=== PATIENT | male | born 1950 | race Caucasian/White ===

== ENCOUNTER 2019-12-10 08:00 | Inpatient (IN) ==
[2019-12-10] MEDS ORDERED: GLUCAGON 1 MG VIAL IM PRN (09:30)
[2019-12-10] MEDS ORDERED: DEXTROSE 50% 25 GM/50 ML VIAL IV PRN (09:30)
[2019-12-10 10:11] LABS: Basophils % 0.8 % (0.0-0.8); Eosinophils # 0.2 10*3/uL (0.0-0.87); Eosinophils % 3.7 % (0.00-10.9); Hematocrit 49.2 VOL% (42.0-52.0); Hemoglobin 16.6 GM/DL (14.0-18.0); Immature Granulocytes % 0.2 %; Immature Granulocytes Absolute 0.01 #; Lymphocytes # 1.5 10*3/uL (1.4-4.0); Lymphocytes % 29.5 % (21.2-54.2); Mean Corpuscular HGB Conc 33.7 GM/DL (32-36); Mean Corpuscular Volume 94.1 FL (87-102); Monocytes % 9.1 % (1.7-12.7); Neutrophils % 56.7 % (38.7-73.9); Platelet Count 184 T/CUMM (130-400); Red Blood Count 5.23 MC/CUMM (3.8-5.5); Red Cell Distribution Width 12.4 % (9.3-17.3); White Blood Count 4.9 T/CUMM (4-12)
[2019-12-10 10:21] LABS: ABG Base Excess 1.2 MMOL/L (-2.5-2.5); ABG HCO3 25.4 MMOL/L (20-26); ABG Oxygen Saturation 97.5 % (95-100); ABG PCO2 39.2 MM HG (35-48); ABG PH 7.421 (7.35-7.45); ABG PO2 91.8 MM HG (80-95); ABG TCO2 21.1 MMOL/L (23-27)
[2019-12-10 10:25] LABS: Albumin 3.5 G/DL (3.4-5.0); Bilirubin,Total 0.9 MG/DL (0.2-1.0); Calcium 8.8 MG/DL (8.5-10.1); Osmolality,Calculated 286.4 MOS/KG (273-304); Total Protein 7.2 G/DL (6.4-8.3)
[2019-12-10] MEDS ORDERED: ZALEPLON 5 MG CAPSULE PO PRN (11:50)
[2019-12-10] MEDS ORDERED: CLORAZEPATE 7.5 MG TABLET PO PRN (11:50)
[2019-12-10] MEDS ORDERED: oxyCODONE/ACETAMINOPHEN 5-325 MG TABLET PO PRN (13:06)
[2019-12-10] MEDS: CHLORHEXIDINE 4% SOLN 118 ML BOTTLE TOP SCH ×2 (15:41→21:23)
[2019-12-10] MEDS: CHLORHEXIDINE 0.12% ORAL RINSE 60 ML BOTTLE SWISH/SPIT SCH (21:23)
[2019-12-11] MEDS ORDERED: PAPAVERINE 60 MG/2 ML VIAL ONE (04:21)
[2019-12-11] MEDS ORDERED: VANCOMYCIN 1,000 MG VIAL ONE (04:22)
[2019-12-11] MEDS ORDERED: VANCOMYCIN 500 MG VIAL ONE (04:22)
[2019-12-11] MEDS ORDERED: DIAZEPAM 5 MG TABLET PO ONE (05:30)
[2019-12-11] MEDS ORDERED: FAMOTIDINE 20 MG TABLET PO ONE (05:30)
[2019-12-11] MEDS ORDERED: VANCOMYCIN INJ 1,000 MG in SODIUM CHLORIDE 0.9% 250 ML IV ONE ×2 (05:30→07:00)
[2019-12-11] MEDS ORDERED: SUFentanil 250 MCG/5 ML AMP ONE (06:00)
[2019-12-11] MEDS ORDERED: MIDAZOLAM 10 MG/2 ML VIAL ONE (06:00)
[2019-12-11 08:19] LABS: ABG Base Excess 0.3 MMOL/L (-2.5-2.5); ABG HCO3 24.7 MMOL/L (20-26); ABG Oxygen Saturation 99.9 % (95-100); ABG PCO2 37.1 MM HG (35-48); ABG PH 7.424 (7.35-7.45); ABG TCO2 20.5 MMOL/L (23-27); Glucose Heart Surgery 108 MG/DL (74-106); Hematocrit Heart Surgery 46.9 PERCENT (42-52); Hemoglobin Heart Surgery 15.3 G/DL (14.0-18.0); Ionized Calcium Arterial 1.13 MMOL/L (1.21-1.46); PCO2 Patient Temp Arterial 37.1 MMHG; PH Patient Temp Arterial 7.424; Patient Temperature 37 CELCIUS; Potassium Heart/CVR 3.5 MMOL/L (3.5-5.1); Sodium Heart/CVR 137 MMOL/L (135-145)
[2019-12-11 08:43] LABS: Bilirubin,Urine Negative (Negative); Blood, Urine Negative (Negative); Glucose,Urine (UA) Negative (Negative); Ketones,Urine Negative (Negative); Mucus,Urine Few /LPF (Occasional); Nitrite,Urine Negative (Negative); Protein,Urine Negative; RBC,Urine 1 /HPF (0-4); Urine Appearance CLEAR (Clear); Urine Color Yellow (Yellow); Urine Specific Gravity 1.013 (1.001-1.035); Urine Urobilinogen < 2.0 EU/DL (0.2-1.0); WBC,Urine 2 /HPF (0-6)
[2019-12-11] MEDS: CHLORHEXIDINE 4% SOLN 118 ML BOTTLE TOP SCH (08:54)
[2019-12-11] MEDS: CHLORHEXIDINE 0.12% ORAL RINSE 60 ML BOTTLE SWISH/SPIT SCH (08:54)
[2019-12-11] MEDS: SODIUM CHLORIDE 0.9% 1,000 ML IV SCH (08:54)
[2019-12-11] MEDS ORDERED: AMINOCAPROIC ACID 5,000 MG/20 ML VIAL ONE (09:37)
[2019-12-11] MEDS ORDERED: NITROGLYCERIN DRIP 50 MG/250 ML BOTTLE IV ONE (09:37)
[2019-12-11] MEDS ORDERED: HEPARIN/NACL 0.9% 2 UNITS/ML 500 ML IV ONE (09:37)
[2019-12-11] MEDS ORDERED: PHENYLEPHRINE DRIP 20 MG/250 ML PREMIX IV ONE (09:37)
[2019-12-11 09:42] LABS: Hemoglobin Heart Surgery 11.6 G/DL (14.0-18.0); PCO2 Patient Temp Venous 35.1 MM HG; PH Patient Temp Venous 7.446; PO2 Patient Temp Venous 47.7 MM HG; Potassium Heart/CVR 4.7 MMOL/L (3.5-5.1); VBG HCO3 23.6 MEQ/L (24-28); VBG Oxygen Saturation 84.7 %; VBG PCO2 35.1 MMHG (41-51); VBG PH 7.446; VBG PO2 47.7 MMHG (17-40)
[2019-12-11 10:16] LABS: Hematocrit Heart Surgery 39.2 PERCENT (42-52); Hemoglobin Heart Surgery 12.7 G/DL (14.0-18.0); PCO2 Patient Temp Venous 34.4 MM HG; PH Patient Temp Venous 7.471; PO2 Patient Temp Venous 47.2 MM HG; Potassium Heart/CVR 4.8 MMOL/L (3.5-5.1); VBG Base Excess 1.9 MEQ/L (0-4); VBG HCO3 25.8 MEQ/L (24-28); VBG Oxygen Saturation 85.9 %; VBG PCO2 34.4 MMHG (41-51); VBG PH 7.471; VBG PO2 47.2 MMHG (17-40)
[2019-12-11 10:42] LABS: Hematocrit Heart Surgery 41.7 PERCENT (42-52); Hemoglobin Heart Surgery 13.6 G/DL (14.0-18.0); PCO2 Patient Temp Venous 34.5 MM HG; PH Patient Temp Venous 7.466; PO2 Patient Temp Venous 43.9 MM HG; VBG Base Excess 1.7 MEQ/L (0-4); VBG HCO3 25.5 MEQ/L (24-28); VBG Oxygen Saturation 82.7 %; VBG PCO2 34.5 MMHG (41-51); VBG PH 7.466; VBG PO2 43.9 MMHG (17-40)
[2019-12-11] MEDS ORDERED: MAGNESIUM SULFATE 5 GM/10 ML VIAL IV ONE (11:11)
[2019-12-11] MEDS ORDERED: DEXTROSE 5% KCL 20 MEQ 20 MEQ/1,000 ML BAG IV ONE (11:11)
[2019-12-11] MEDS ORDERED: LIDOCAINE 2% 5 ML VIAL ONE ×2 (11:11→13:00)
[2019-12-11] MEDS ORDERED: MANNITOL 100 GM/500 ML BAG IV ONE (11:11)
[2019-12-11] MEDS ORDERED: HEPARIN 10,000 UNIT/10 ML VIAL ONE (11:11)
[2019-12-11] MEDS ORDERED: ALBUMIN 25% 25 GM/100 ML VIAL IV ONE (11:11)
[2019-12-11] MEDS ORDERED: SODIUM BICARBONATE 50 MEQ/50 ML VIAL IV ONE (11:11)
[2019-12-11] MEDS ORDERED: PROTAMINE SULFATE 250 MG/25 ML VIAL IV ONE (11:11)
[2019-12-11] MEDS ORDERED: THROMBIN TOPICAL (RECOMBINANT) 5,000 UNIT VIAL TOP ONE (11:12)
[2019-12-11] MEDS ORDERED: FUROSEMIDE 20 MG/2 ML VIAL ONE (11:12)
[2019-12-11] MEDS ORDERED: PROTAMINE SULFATE 50 MG/5 ML VIAL IV ONE (11:12)
[2019-12-11] MEDS ORDERED: methylPREDNISolone SOD SUC 1,000 MG/8 ML VIAL ONE (11:12)
[2019-12-11 11:25] LABS: ABG Base Excess -0.8 MMOL/L (-2.5-2.5); ABG HCO3 23.8 MMOL/L (20-26); ABG PCO2 32.5 MM HG (35-48); ABG PH 7.447 (7.35-7.45); ABG TCO2 19.4 MMOL/L (23-27); Glucose Heart Surgery 186 MG/DL (74-106); Hematocrit Heart Surgery 41.2 PERCENT (42-52); Hemoglobin Heart Surgery 13.4 G/DL (14.0-18.0); Ionized Calcium Arterial 1.23 MMOL/L (1.21-1.46); PCO2 Patient Temp Arterial 32.5 MMHG; PH Patient Temp Arterial 7.447; Patient Temperature 37 CELCIUS; Sodium Heart/CVR 138 MMOL/L (135-145)
[2019-12-11] MEDS ORDERED: ACETAMINOPHEN 650 MG SUPP RECTAL PRN (11:39)
[2019-12-11] MEDS ORDERED: INSULIN REGULAR 100 UNIT/ML IV PRN (11:39)
[2019-12-11] MEDS ORDERED: VECURONIUM 10 MG VIAL IV PRN ×2 (11:39)
[2019-12-11] MEDS ORDERED: ONDANSETRON 4 MG/2 ML VIAL IV PRN (11:39)
[2019-12-11] MEDS ORDERED: NITROPRUSSIDE 100 MG in DEXTROSE 5% 250 ML IV PRN (11:39)
[2019-12-11] MEDS ORDERED: CALCIUM CHLORIDE 1,000 MG/10 ML SYRINGE IV PRN (11:39)
[2019-12-11] MEDS ORDERED: INSULIN REGULAR 100 UNIT/ML IV ONE (11:39)
[2019-12-11] MEDS ORDERED: MORPHINE 10 MG/1 ML VIAL IV PRN (11:39)
[2019-12-11] MEDS ORDERED: MAGNESIUM SULF RIDER 2 GM in PREMIX 1 EACH IV PRN (11:39)
[2019-12-11] MEDS ORDERED: MAGNESIUM SULF RIDER 4 GM in PREMIX 1 EACH IV PRN (11:39)
[2019-12-11] MEDS ORDERED: DEXTROSE 50% 25 GM/50 ML VIAL IV PRN ×2 (11:39)
[2019-12-11] MEDS ORDERED: POTASSIUM CHLORIDE RIDER 10 MEQ in PREMIX 1 EACH IV PRN (11:39)
[2019-12-11] MEDS ORDERED: MIDAZOLAM 10 MG/2 ML VIAL IV PRN (11:39)
[2019-12-11] MEDS ORDERED: PHENYLEPHRINE DRIP 40 MG/250 ML PREMIX IV PRN (11:39)
[2019-12-11] MEDS ORDERED: CHLORHEXIDINE 4% SOLN 118 ML BOTTLE TOP PRN (11:39)
[2019-12-11] MEDS ORDERED: MIDAZOLAM 2 MG/2 ML VIAL IV PRN (11:39)
[2019-12-11] MEDS ORDERED: SODIUM CHLORIDE 0.45% 1,000 ML IV SCH ×2 (12:00)
[2019-12-11] MEDS ORDERED: INSULIN REGULAR DRIP 100 ML IV SCH (12:00)
[2019-12-11] MEDS: LACTATED RINGERS 250 ML IV PRN ×11 (12:15→17:24)
[2019-12-11 12:37] LABS: ABG HCO3 23.6 MMOL/L (20-26); ABG Oxygen Saturation 99.3 % (95-100); ABG PCO2 36.1 MM HG (35-48); ABG PH 7.413 (7.35-7.45); ABG TCO2 19.8 MMOL/L (23-27); Glucose Heart Surgery 161 MG/DL (74-106); Potassium Heart/CVR 3.7 MMOL/L (3.5-5.1)
[2019-12-11 12:38] LABS: Basophils % 0.3 % (0.0-0.8); Eosinophils # 0.1 10*3/uL (0.0-0.87); Eosinophils % 0.4 % (0.00-10.9); Hematocrit 40.6 VOL% (42.0-52.0); Hemoglobin 13.9 GM/DL (14.0-18.0); Immature Granulocytes % 0.8 %; Immature Granulocytes Absolute 0.09 #; Lymphocytes % 8.3 % (21.2-54.2); Mean Corpuscular HGB Conc 34.2 GM/DL (32-36); Mean Platelet Volume 9.6 FL (9.6-12.0); Monocytes % 7.3 % (1.7-12.7); Neutrophils % 82.9 % (38.7-73.9); Platelet Count 157 T/CUMM (130-400); Red Blood Count 4.32 MC/CUMM (3.8-5.5); Red Cell Distribution Width 12.2 % (9.3-17.3); White Blood Count 11.4 T/CUMM (4-12)
[2019-12-11 12:48] LABS: INR 1.2; PT Patient Result 12.8 SECS (9.8-11.9); Partial Thromboplastin Time 28.9 SECS (23.9-33.8)
[2019-12-11] MEDS: POTASSIUM CHLORIDE RIDER 20 MEQ in PREMIX 1 EACH IV PRN ×3 (12:49→16:31)
[2019-12-11] MEDS ORDERED: MINERAL OIL/PETROLATUM OPH OINT 3.5 GM TUBE ONE (13:00)
[2019-12-11] MEDS ORDERED: SEVOFLURANE 1 UNIT/15 MINUTE INH ONE (13:00)
[2019-12-11] MEDS ORDERED: LACTATED RINGERS 1,000 ML IV ONE (13:01)
[2019-12-11] MEDS ORDERED: CALCIUM CHLORIDE 1,000 MG/10 ML VIAL IV ONE (13:01)
[2019-12-11] MEDS ORDERED: SODIUM CHLORIDE 0.9% 200 ML IV ONE (13:01)
[2019-12-11] MEDS ORDERED: VECURONIUM 10 MG VIAL IV ONE (13:01)
[2019-12-11] MEDS ORDERED: SODIUM CHLORIDE 0.9% 1,000 ML IV ONE (13:01)
[2019-12-11] MEDS ORDERED: PHENYLEPHRINE 1 MG/10 ML SYRINGE IV ONE (13:01)
[2019-12-11] MEDS ORDERED: ETOMIDATE 40 MG/20 ML VIAL IV ONE (13:01)
[2019-12-11] MEDS ORDERED: GLYCOPYRROLATE 0.4 MG/2 ML VIAL ONE (13:01)
[2019-12-11 13:05] LABS: Albumin 2.9 G/DL (3.4-5.0); Bilirubin,Total 1.7 MG/DL (0.2-1.0); CKMB % 3.4 %; Calcium 8.3 MG/DL (8.5-10.1); Osmolality,Calculated 294.6 MOS/KG (273-304); Total Protein 5.6 G/DL (6.4-8.3)
[2019-12-11 13:08] LABS: Troponin I 2.7 NG/ML (0.00-0.045)
[2019-12-11] MEDS: ALBUMIN 5% 12.5 GM in PREMIX 1 EACH IV PRN ×3 (13:44→16:00)
[2019-12-11] MEDS: KETOROLAC 30 MG/1 ML VIAL IV SCH ×2 (13:51→20:13)
[2019-12-11 13:58] LABS: VBG Base Excess -0.3 MEQ/L (0-4); VBG HCO3 23.5 MEQ/L (24-28); VBG Oxygen Saturation 67.1 %; VBG PCO2 49.2 MMHG (41-51); VBG PH 7.337
[2019-12-11 14:19] LABS: ABG HCO3 23.6 MMOL/L (20-26); ABG Oxygen Saturation 98.2 % (95-100); ABG PCO2 39.7 MM HG (35-48); ABG PH 7.386 (7.35-7.45); ABG TCO2 20.8 MMOL/L (23-27); Glucose Heart Surgery 161 MG/DL (74-106); Hematocrit Heart Surgery 40.8 PERCENT (42-52); Hemoglobin Heart Surgery 13.3 G/DL (14.0-18.0); Potassium Heart/CVR 4.1 MMOL/L (3.5-5.1)
[2019-12-11 15:37] LABS: ABG Base Excess -1.6 MMOL/L (-2.5-2.5); ABG HCO3 23.1 MMOL/L (20-26); ABG Oxygen Saturation 96.3 % (95-100); ABG PCO2 50.8 MM HG (35-48); ABG PH 7.309 (7.35-7.45); ABG PO2 91.3 MM HG (80-95); ABG TCO2 22.5 MMOL/L (23-27); Glucose Heart Surgery 177 MG/DL (74-106); Hematocrit Heart Surgery 40.6 PERCENT (42-52); Hemoglobin Heart Surgery 13.2 G/DL (14.0-18.0); Potassium Heart/CVR 4.5 MMOL/L (3.5-5.1)
[2019-12-11] MEDS: INSULIN REGULAR 100 UNIT/ML SUBCUT SCH ×3 (15:47→23:35)
[2019-12-11 16:17] LABS: ABG Base Excess -2.5 MMOL/L (-2.5-2.5); ABG HCO3 23.7 MMOL/L (20-26); ABG Oxygen Saturation 95.7 % (95-100); ABG PH 7.329 (7.35-7.45); ABG PO2 89.4 MM HG (80-95); ABG TCO2 25.1 MMOL/L (23-27); Glucose Heart Surgery 173 MG/DL (74-106); Hemoglobin Heart Surgery 13.3 G/DL (14.0-18.0); Potassium Heart/CVR 4.3 MMOL/L (3.5-5.1)
[2019-12-11 18:06] LABS: ABG Base Excess -2.4 MMOL/L (-2.5-2.5); ABG HCO3 22.4 MMOL/L (20-26); ABG Oxygen Saturation 99.2 % (95-100); ABG PCO2 50.1 MM HG (35-48); ABG TCO2 21.9 MMOL/L (23-27); Glucose Heart Surgery 201 MG/DL (74-106); Potassium Heart/CVR 4.6 MMOL/L (3.5-5.1)
[2019-12-11 18:18] LABS: ABG Base Excess -1.7 MMOL/L (-2.5-2.5); ABG HCO3 22.9 MMOL/L (20-26); ABG Oxygen Saturation 92.3 % (95-100); ABG PCO2 44.5 MM HG (35-48); ABG PH 7.344 (7.35-7.45); ABG PO2 66.9 MM HG (80-95); ABG TCO2 21.3 MMOL/L (23-27); Glucose Heart Surgery 205 MG/DL (74-106); Hematocrit Heart Surgery 40.2 PERCENT (42-52); Hemoglobin Heart Surgery 13.1 G/DL (14.0-18.0); Potassium Heart/CVR 4.5 MMOL/L (3.5-5.1)
[2019-12-11] MEDS: MORPHINE 4 MG/1 ML VIAL IV PRN ×3 (18:27→22:29)
[2019-12-11 19:17] LABS: ABG HCO3 22.7 MMOL/L (20-26); ABG Oxygen Saturation 96.3 % (95-100); ABG PCO2 44.5 MM HG (35-48); ABG PH 7.339 (7.35-7.45); ABG PO2 86.1 MM HG (80-95); ABG TCO2 21.2 MMOL/L (23-27); Glucose Heart Surgery 213 MG/DL (74-106); Hematocrit Heart Surgery 39.7 PERCENT (42-52); Hemoglobin Heart Surgery 12.9 G/DL (14.0-18.0); Potassium Heart/CVR 4.4 MMOL/L (3.5-5.1)
[2019-12-11 19:38] LABS: CKMB % 5.7 %
[2019-12-11 19:40] LABS: Troponin I 15.4 NG/ML (0.00-0.045)
[2019-12-11] MEDS ORDERED: CHLORHEXIDINE 0.12% ORAL RINSE 60 ML BOTTLE SWISH/SPIT SCH (21:00)
[2019-12-11 21:20] LABS: ABG Base Excess -2.7 MMOL/L (-2.5-2.5); ABG HCO3 22.2 MMOL/L (20-26); ABG Oxygen Saturation 96.7 % (95-100); ABG PCO2 51.8 MM HG (35-48); ABG PH 7.287 (7.35-7.45); Glucose Heart Surgery 228 MG/DL (74-106); Hematocrit Heart Surgery 39.8 PERCENT (42-52); Potassium Heart/CVR 4.1 MMOL/L (3.5-5.1)
[2019-12-11 22:22] LABS: ABG Base Excess -2.9 MMOL/L (-2.5-2.5); ABG Oxygen Saturation 97.5 % (95-100); ABG PCO2 49.5 MM HG (35-48); ABG PH 7.297 (7.35-7.45); ABG TCO2 21.5 MMOL/L (23-27); Glucose Heart Surgery 226 MG/DL (74-106); Hematocrit Heart Surgery 39.4 PERCENT (42-52); Hemoglobin Heart Surgery 12.8 G/DL (14.0-18.0); Potassium Heart/CVR 4.2 MMOL/L (3.5-5.1)
[2019-12-11] MEDS: DEXMEDETOMIDINE 200 MCG in SODIUM CHLORIDE 0.9% 48 ML IV PRN (23:30)
[2019-12-11] MEDS ORDERED: VANCOMYCIN INJ 1,000 MG in SODIUM CHLORIDE 0.9% 250 ML IV SCH (23:33)
[2019-12-11 23:49] LABS: ABG Base Excess -2.9 MMOL/L (-2.5-2.5); ABG Oxygen Saturation 98.2 % (95-100); ABG PCO2 41.9 MM HG (35-48); ABG PH 7.343 (7.35-7.45); ABG TCO2 20.1 MMOL/L (23-27); Glucose Heart Surgery 225 MG/DL (74-106); Hematocrit Heart Surgery 39.3 PERCENT (42-52); Hemoglobin Heart Surgery 12.8 G/DL (14.0-18.0); Potassium Heart/CVR 4.1 MMOL/L (3.5-5.1)
[2019-12-12 00:49] LABS: ABG Base Excess -2.5 MMOL/L (-2.5-2.5); ABG HCO3 22.3 MMOL/L (20-26); ABG Oxygen Saturation 95.4 % (95-100); ABG PCO2 37.6 MM HG (35-48); ABG PO2 75.8 MM HG (80-95); ABG TCO2 19.6 MMOL/L (23-27); Glucose Heart Surgery 214 MG/DL (74-106); Hematocrit Heart Surgery 38.5 PERCENT (42-52); Hemoglobin Heart Surgery 12.5 G/DL (14.0-18.0)
[2019-12-12] MEDS: MORPHINE 4 MG/1 ML VIAL IV PRN (00:59)
[2019-12-12 02:28] LABS: ABG Base Excess -1.9 MMOL/L (-2.5-2.5); ABG HCO3 22.8 MMOL/L (20-26); ABG Oxygen Saturation 98.4 % (95-100); ABG PCO2 34.9 MM HG (35-48); ABG TCO2 19.4 MMOL/L (23-27); Glucose Heart Surgery 199 MG/DL (74-106); Hematocrit Heart Surgery 38.5 PERCENT (42-52); Hemoglobin Heart Surgery 12.5 G/DL (14.0-18.0)
[2019-12-12] MEDS: KETOROLAC 30 MG/1 ML VIAL IV SCH ×4 (02:28→22:04)
[2019-12-12] MEDS ORDERED: FUROSEMIDE 40 MG/4 ML VIAL ONE (03:12)
[2019-12-12] MEDS ORDERED: FUROSEMIDE 40 MG/4 ML VIAL IV ONE (03:20)
[2019-12-12 03:46] LABS: ABG Base Excess -1.1 MMOL/L (-2.5-2.5); ABG HCO3 23.4 MMOL/L (20-26); ABG Oxygen Saturation 97.2 % (95-100); ABG PCO2 34.3 MM HG (35-48); ABG PH 7.426 (7.35-7.45); ABG PO2 85.3 MM HG (80-95); ABG TCO2 19.8 MMOL/L (23-27); Glucose Heart Surgery 191 MG/DL (74-106); Hematocrit Heart Surgery 38.6 PERCENT (42-52); Hemoglobin Heart Surgery 12.5 G/DL (14.0-18.0); Potassium Heart/CVR 3.6 MMOL/L (3.5-5.1)
[2019-12-12 03:48] LABS: Basophils % 0.1 % (0.0-0.8); Hematocrit 37.5 VOL% (42.0-52.0); Hemoglobin 12.6 GM/DL (14.0-18.0); Immature Granulocytes % 0.2 %; Immature Granulocytes Absolute 0.02 #; Lymphocytes # 0.8 10*3/uL (1.4-4.0); Lymphocytes % 7.5 % (21.2-54.2); Mean Corpuscular HGB Conc 33.6 GM/DL (32-36); Mean Corpuscular Volume 95.7 FL (87-102); Mean Platelet Volume 10.1 FL (9.6-12.0); Monocytes % 8.2 % (1.7-12.7); Platelet Count 134 T/CUMM (130-400); Red Blood Count 3.92 MC/CUMM (3.8-5.5); Red Cell Distribution Width 12.6 % (9.3-17.3); White Blood Count 10.2 T/CUMM (4-12)
[2019-12-12] MEDS: DEXMEDETOMIDINE 200 MCG in SODIUM CHLORIDE 0.9% 48 ML IV PRN (03:57)
[2019-12-12 04:11] LABS: Albumin 3.4 G/DL (3.4-5.0); Bilirubin,Direct 0.29 MG/DL (0.0-0.20); Bilirubin,Total 1.3 MG/DL (0.2-1.0); Calcium 8.7 MG/DL (8.5-10.1); Osmolality,Calculated 295.7 MOS/KG (273-304); Total Protein 6.1 G/DL (6.4-8.3)
[2019-12-12 04:19] LABS: CKMB % 6.2 %
[2019-12-12] MEDS: ALBUMIN 5% 12.5 GM in PREMIX 1 EACH IV PRN ×2 (04:30→05:17)
[2019-12-12] MEDS: INSULIN REGULAR 100 UNIT/ML SUBCUT SCH ×5 (04:37→22:03)
[2019-12-12 05:01] LABS: Troponin I 30.4 NG/ML (0.00-0.045)
[2019-12-12 05:53] LABS: ABG Base Excess -0.2 MMOL/L (-2.5-2.5); ABG HCO3 24.2 MMOL/L (20-26); ABG Oxygen Saturation 96.6 % (95-100); ABG PCO2 40.5 MM HG (35-48); ABG PH 7.392 (7.35-7.45); ABG TCO2 21.9 MMOL/L (23-27); Glucose Heart Surgery 176 MG/DL (74-106); Hematocrit Heart Surgery 36.7 PERCENT (42-52); Hemoglobin Heart Surgery 11.9 G/DL (14.0-18.0); Potassium Heart/CVR 3.6 MMOL/L (3.5-5.1)
[2019-12-12 06:37] LABS: ABG Base Excess -0.8 MMOL/L (-2.5-2.5); ABG HCO3 23.7 MMOL/L (20-26); ABG Oxygen Saturation 94.8 % (95-100); ABG PO2 77.2 MM HG (80-95); ABG TCO2 21.6 MMOL/L (23-27); Glucose Heart Surgery 171 MG/DL (74-106); Hematocrit Heart Surgery 36.1 PERCENT (42-52); Hemoglobin Heart Surgery 11.7 G/DL (14.0-18.0); Potassium Heart/CVR 3.7 MMOL/L (3.5-5.1)
[2019-12-12] MEDS ORDERED: ONDANSETRON 4 MG/2 ML VIAL IV PRN (07:17)
[2019-12-12] MEDS ORDERED: MAGNESIUM SULF RIDER 4 GM in PREMIX 1 EACH IV PRN (07:17)
[2019-12-12] MEDS ORDERED: DEXTROSE 50% 25 GM/50 ML VIAL IV PRN ×2 (07:17)
[2019-12-12] MEDS ORDERED: GLUCAGON 1 MG VIAL IM PRN ×2 (07:17)
[2019-12-12] MEDS ORDERED: ALUMINUM/MAGNES/SIMETH MAX STR 30 ML UDCUP PO PRN (07:17)
[2019-12-12] MEDS ORDERED: MAGNESIUM SULF RIDER 2 GM in PREMIX 1 EACH IV PRN (07:17)
[2019-12-12] MEDS: PANTOPRAZOLE 40 MG TABLET PO SCH (08:16)
[2019-12-12] MEDS: TAMSULOSIN 0.4 MG CAPSULE PO SCH (08:16)
[2019-12-12] MEDS: FERROUS SULFATE 325 MG TABLET PO SCH (08:17)
[2019-12-12] MEDS: ASPIRIN EC 325 MG TABLET PO SCH (08:18)
[2019-12-12] MEDS: DOCUSATE SODIUM 100 MG CAPSULE PO SCH (08:18)
[2019-12-12] MEDS: FINASTERIDE 5 MG TABLET PO SCH (08:18)
[2019-12-12] MEDS: SODIUM CHLOR 0.45% KCL 20 MEQ 20 MEQ/1,000 ML BAG IV SCH (08:25)
[2019-12-12] MEDS ORDERED: ALPRAZolam 0.5 MG TABLET PO SCH ×2 (09:00→21:00)
[2019-12-12] MEDS: CHLORHEXIDINE 0.12% ORAL RINSE 60 ML BOTTLE SWISH/SPIT SCH ×2 (10:00→22:03)
[2019-12-12] MEDS ORDERED: INFLUENZA VIRUS VACCINE 0.5 ML SYRINGE IM ONE (12:01)
[2019-12-12] MEDS: ALPRAZolam 0.5 MG TABLET PO SCH (22:03)
[2019-12-12] MEDS: ZALEPLON 5 MG CAPSULE PO SCH (22:03)
[2019-12-13] MEDS: KETOROLAC 30 MG/1 ML VIAL IV SCH ×4 (01:58→18:37)
[2019-12-13] MEDS ORDERED: FUROSEMIDE 40 MG/4 ML VIAL IV ONE (06:00)
[2019-12-13 06:46] LABS: Albumin 3.1 G/DL (3.4-5.0); Bilirubin,Direct 0.23 MG/DL (0.0-0.20); Bilirubin,Indirect 0.7 MG/DL (0.0-1.0); Bilirubin,Total 0.9 MG/DL (0.2-1.0); Calcium 8.5 MG/DL (8.5-10.1); Osmolality,Calculated 288.4 MOS/KG (273-304); Total Protein 5.9 G/DL (6.4-8.3); Troponin I 17.1 NG/ML (0.00-0.045)
[2019-12-13 06:49] LABS: Basophils % 0.1 % (0.0-0.8); Hematocrit 31.9 VOL% (42.0-52.0); Hemoglobin 10.7 GM/DL (14.0-18.0); Immature Granulocytes % 0.5 %; Immature Granulocytes Absolute 0.07 #; Lymphocytes # 1.3 10*3/uL (1.4-4.0); Lymphocytes % 8.9 % (21.2-54.2); Mean Corpuscular HGB Conc 33.5 GM/DL (32-36); Mean Corpuscular Volume 97.3 FL (87-102); Mean Platelet Volume 10.7 FL (9.6-12.0); Monocytes % 10.4 % (1.7-12.7); Neutrophils % 80.1 % (38.7-73.9); Platelet Count 122 T/CUMM (130-400); Red Blood Count 3.28 MC/CUMM (3.8-5.5); Red Cell Distribution Width 12.6 % (9.3-17.3); White Blood Count 15.1 T/CUMM (4-12)
[2019-12-13 07:22] LABS: Band Neutrophils 7 % (0-10); Hypochromasia Slight; Lymphocytes 5 % (20-55); Microcytosis 1+; Ovalocytes Slight; Segmented Neutrophils 85 % (50-85); Total Cells Counted 100
[2019-12-13 07:23] LABS: Platelet Estimate Adequate
[2019-12-13] MEDS: ASPIRIN EC 325 MG TABLET PO SCH (11:02)
[2019-12-13] MEDS: TAMSULOSIN 0.4 MG CAPSULE PO SCH (11:02)
[2019-12-13] MEDS: PANTOPRAZOLE 40 MG TABLET PO SCH (11:03)
[2019-12-13] MEDS: ALPRAZolam 0.5 MG TABLET PO SCH ×2 (11:03→21:05)
[2019-12-13] MEDS: FERROUS SULFATE 325 MG TABLET PO SCH (11:03)
[2019-12-13] MEDS: FINASTERIDE 5 MG TABLET PO SCH (11:03)
[2019-12-13] MEDS: DOCUSATE SODIUM 100 MG CAPSULE PO SCH (11:03)
[2019-12-13] MEDS: CHLORHEXIDINE 0.12% ORAL RINSE 60 ML BOTTLE SWISH/SPIT SCH ×2 (11:04→21:05)
[2019-12-13] MEDS: INSULIN REGULAR 100 UNIT/ML SUBCUT SCH ×4 (11:06→21:04)
[2019-12-13] MEDS: SODIUM CHLOR 0.45% KCL 20 MEQ 20 MEQ/1,000 ML BAG IV SCH (11:06)
[2019-12-13] MEDS: ZALEPLON 5 MG CAPSULE PO SCH (21:05)
[2019-12-14] MEDS: KETOROLAC 30 MG/1 ML VIAL IV SCH ×4 (02:16→21:23)
[2019-12-14 04:13] LABS: Basophils % 0.2 % (0.0-0.8); Eosinophils % 0.1 % (0.00-10.9); Hematocrit 31.6 VOL% (42.0-52.0); Hemoglobin 10.4 GM/DL (14.0-18.0); Immature Granulocytes % 0.5 %; Immature Granulocytes Absolute 0.05 #; Lymphocytes # 1.8 10*3/uL (1.4-4.0); Lymphocytes % 17.5 % (21.2-54.2); Mean Corpuscular HGB Conc 32.9 GM/DL (32-36); Mean Corpuscular Volume 95.2 FL (87-102); Monocytes % 11.6 % (1.7-12.7); Neutrophils % 70.1 % (38.7-73.9); Platelet Count 124 T/CUMM (130-400); Red Blood Count 3.32 MC/CUMM (3.8-5.5); Red Cell Distribution Width 12.4 % (9.3-17.3); White Blood Count 10.4 T/CUMM (4-12)
[2019-12-14 04:40] LABS: Calcium 8.3 MG/DL (8.5-10.1)
[2019-12-14 04:56] LABS: Albumin 2.9 G/DL (3.4-5.0); Bilirubin,Direct 0.24 MG/DL (0.0-0.20); Bilirubin,Total 1.2 MG/DL (0.2-1.0); Calcium 8.3 MG/DL (8.5-10.1); Osmolality,Calculated 287.4 MOS/KG (273-304); Total Protein 5.9 G/DL (6.4-8.3)
[2019-12-14 05:18] LABS: Osmolality,Calculated 281.8 MOS/KG (273-304)
[2019-12-14 05:21] LABS: Troponin I 12.9 NG/ML (0.00-0.045)
[2019-12-14] MEDS: INSULIN REGULAR 100 UNIT/ML SUBCUT SCH ×3 (09:17→16:43)
[2019-12-14] MEDS: CHLORHEXIDINE 0.12% ORAL RINSE 60 ML BOTTLE SWISH/SPIT SCH ×2 (09:37→21:21)
[2019-12-14] MEDS: ALPRAZolam 0.5 MG TABLET PO SCH ×2 (09:37→21:20)
[2019-12-14] MEDS: PANTOPRAZOLE 40 MG TABLET PO SCH (09:39)
[2019-12-14] MEDS: TAMSULOSIN 0.4 MG CAPSULE PO SCH (09:39)
[2019-12-14] MEDS: DOCUSATE SODIUM 100 MG CAPSULE PO SCH (09:39)
[2019-12-14] MEDS: ASPIRIN EC 325 MG TABLET PO SCH (09:39)
[2019-12-14] MEDS: FERROUS SULFATE 325 MG TABLET PO SCH (09:39)
[2019-12-14] MEDS: FINASTERIDE 5 MG TABLET PO SCH (09:39)
[2019-12-14] MEDS: MAGNESIUM HYDROXIDE SUSP 30 ML UDCUP PO PRN (13:52)
[2019-12-14] MEDS: ZALEPLON 5 MG CAPSULE PO SCH (21:21)
[2019-12-15] MEDS: KETOROLAC 30 MG/1 ML VIAL IV SCH (02:35)
[2019-12-15 06:25] LABS: Calcium 8.2 MG/DL (8.5-10.1); Osmolality,Calculated 279.7 MOS/KG (273-304)
[2019-12-15] MEDS ORDERED: INFLUENZA VIRUS VACCINE 0.5 ML SYRINGE IM ONE (07:00)
[2019-12-15] MEDS: ASPIRIN EC 325 MG TABLET PO SCH (09:43)
[2019-12-15] MEDS: DOCUSATE SODIUM 100 MG CAPSULE PO SCH (09:44)
[2019-12-15] MEDS: FERROUS SULFATE 325 MG TABLET PO SCH (09:44)
[2019-12-15] MEDS: POLYETHYLENE GLYCOL POWDER 17 GM PACK PO SCH (09:46)
[2019-12-15] MEDS: TAMSULOSIN 0.4 MG CAPSULE PO SCH (09:46)
[2019-12-15] MEDS: FINASTERIDE 5 MG TABLET PO SCH (09:47)
[2019-12-15] MEDS: POTASSIUM CHLORIDE 20 MEQ TABLET PO PRN ×2 (09:47→10:59)
[2019-12-15] MEDS: PANTOPRAZOLE 40 MG TABLET PO SCH (09:48)
[2019-12-15] MEDS: ALPRAZolam 0.5 MG TABLET PO SCH ×2 (09:49→22:40)
[2019-12-15] MEDS: CHLORHEXIDINE 0.12% ORAL RINSE 60 ML BOTTLE SWISH/SPIT SCH ×2 (09:53→22:41)
[2019-12-15] MEDS: ACETAMINOPHEN 325 MG TABLET PO PRN (15:54)
[2019-12-15] MEDS ORDERED: ATORVASTATIN 20 MG TABLET PO SCH (21:00)
[2019-12-15] MEDS: ZALEPLON 5 MG CAPSULE PO SCH (22:40)
[2019-12-16 05:46] LABS: Basophils % 0.2 % (0.0-0.8); Eosinophils # 0.2 10*3/uL (0.0-0.87); Eosinophils % 2.1 % (0.00-10.9); Hematocrit 30.7 VOL% (42.0-52.0); Hemoglobin 10.1 GM/DL (14.0-18.0); Immature Granulocytes % 0.4 %; Immature Granulocytes Absolute 0.04 #; Lymphocytes # 1.3 10*3/uL (1.4-4.0); Lymphocytes % 14.2 % (21.2-54.2); Mean Corpuscular HGB Conc 32.9 GM/DL (32-36); Mean Platelet Volume 11.4 FL (9.6-12.0); Monocytes % 11.7 % (1.7-12.7); Neutrophils % 71.4 % (38.7-73.9); Platelet Count 178 T/CUMM (130-400); Red Blood Count 3.23 MC/CUMM (3.8-5.5); Red Cell Distribution Width 12.1 % (9.3-17.3); White Blood Count 9.2 T/CUMM (4-12)
[2019-12-16 06:14] LABS: Alanine Aminotransferase 104 U/L (16-61); Albumin 2.6 G/DL (3.4-5.0); Alkaline Phosphatase 69 U/L (45-117); Aspartate Amino Transferase 55 U/L (0-37); Bilirubin,Indirect 1.3 MG/DL (0.0-1.0); Blood Urea Nitrogen 22 MG/DL (7-18); Calcium 8.6 MG/DL (8.5-10.1); Estimated Glom Filtration Rate 115 ML/MIN; Glucose 113 MG/DL (74-106); Osmolality,Calculated 286.1 MOS/KG (273-304); Total Protein 5.7 G/DL (6.4-8.3)
[2019-12-16] MEDS: POTASSIUM CHLORIDE 20 MEQ TABLET PO PRN (08:29)
[2019-12-16] MEDS: ALPRAZolam 0.5 MG TABLET PO SCH (08:29)
[2019-12-16] MEDS: FERROUS SULFATE 325 MG TABLET PO SCH (08:29)
[2019-12-16] MEDS: FINASTERIDE 5 MG TABLET PO SCH (08:29)
[2019-12-16] MEDS: PANTOPRAZOLE 40 MG TABLET PO SCH (08:29)
[2019-12-16] MEDS: TAMSULOSIN 0.4 MG CAPSULE PO SCH (08:30)
[2019-12-16] MEDS: CHLORHEXIDINE 0.12% ORAL RINSE 60 ML BOTTLE SWISH/SPIT SCH (08:30)
[2019-12-16] MEDS: DOCUSATE SODIUM 100 MG CAPSULE PO SCH (08:30)
[2019-12-16] MEDS: POLYETHYLENE GLYCOL POWDER 17 GM PACK PO SCH (08:30)
[2019-12-16] MEDS: MAGNESIUM HYDROXIDE SUSP 30 ML UDCUP PO PRN (08:30)
[2019-12-16] MEDS: ASPIRIN EC 325 MG TABLET PO SCH (08:30)
[2019-12-16] MEDS: ACETAMINOPHEN 325 MG TABLET PO PRN (12:57)
[2019-12-16 12:58] VITALS: BP 123/61
== END 2019-12-16 13:30 | disposition home health service (06) | DRG 236 ==
LOC: N.4E 09:18 → N.CVR 12-11 11:52 → N.TELES 12-12 11:30

== ENCOUNTER 2020-01-10 15:26 | Inpatient (IN) ==
[2020-01-10] MEDS ORDERED: DILTIAZEM 25 MG/5 ML VIAL IV ONE (15:38)
[2020-01-10] MEDS ORDERED: dilTIAZem Drip 125 MG/125 ML PREMIX IV ONE (15:38)
[2020-01-10 16:03] LABS: Basophils % 0.2 % (0.0-0.8); Eosinophils % 0.2 % (0.00-10.9); Hematocrit 37.6 VOL% (42.0-52.0); Hemoglobin 11.9 GM/DL (14.0-18.0); Immature Granulocytes % 0.6 %; Immature Granulocytes Absolute 0.11 #; Lymphocytes # 0.7 10*3/uL (1.4-4.0); Lymphocytes % 3.9 % (21.2-54.2); Mean Corpuscular HGB Conc 31.6 GM/DL (32-36); Mean Corpuscular Volume 90.6 FL (87-102); Mean Platelet Volume 9.7 FL (9.6-12.0); Neutrophils % 88.1 % (38.7-73.9); Platelet Count 332 T/CUMM (130-400); Red Blood Count 4.15 MC/CUMM (3.8-5.5); Red Cell Distribution Width 13.3 % (9.3-17.3); White Blood Count 18.1 T/CUMM (4-12)
[2020-01-10 16:19] LABS: Calcium 8.5 MG/DL (8.5-10.1); INR 1.3; Partial Thromboplastin Time 30.4 SECS (23.9-33.8); Potassium 3.7 MMOL/L (3.5-5.1)
[2020-01-10] MEDS ORDERED: METOPROLOL TARTRATE 5 MG/5 ML VIAL IV ONE (16:45)
[2020-01-10] MEDS ORDERED: METOPROLOL TARTRATE 5 MG/5 ML VIAL IV STA ×2 (17:16→17:29)
[2020-01-10] MEDS ORDERED: METOPROLOL TARTRATE 25 MG TABLET PO STA (17:16)
[2020-01-10] MEDS ORDERED: MAGNESIUM SULF RIDER 4 GM in PREMIX 1 EACH IV PRN (17:18)
[2020-01-10] MEDS ORDERED: MAGNESIUM SULF RIDER 2 GM in PREMIX 1 EACH IV PRN (17:18)
[2020-01-10] MEDS ORDERED: ENOXAPARIN 80 MG/0.8 ML SYRINGE SUBCUT STA (17:27)
[2020-01-10] MEDS ORDERED: dilTIAZem Drip 125 MG/125 ML PREMIX IV SCH (18:00)
[2020-01-10] MEDS ORDERED: ALPRAZolam 0.5 MG TABLET PO PRN (18:05)
[2020-01-10] MEDS ORDERED: FUROSEMIDE 40 MG/4 ML VIAL IV ONE (18:06)
[2020-01-10] MEDS: LEVOFLOXACIN INJ 500 MG in PREMIX 1 EACH IV SCH (18:30)
[2020-01-10] MEDS: ALBUTEROL/IPRATROPIUM 3 ML NEB RESP TX SCH (19:30)
[2020-01-10] MEDS ORDERED: ENOXAPARIN 100 MG/ML SYRINGE SUBCUT SCH (21:00)
[2020-01-10] MEDS ORDERED: METOPROLOL TARTRATE 25 MG TABLET PO SCH (21:00)
[2020-01-10] MEDS: APIXABAN 5 MG TABLET PO SCH (21:26)
[2020-01-10] MEDS: ONDANSETRON 4 MG/2 ML VIAL IV PRN (21:26)
[2020-01-11] MEDS: ALBUTEROL/IPRATROPIUM 3 ML NEB RESP TX SCH ×4 (01:22→19:02)
[2020-01-11 05:17] LABS: Hematocrit 36.7 VOL% (42.0-52.0); Hemoglobin 11.6 GM/DL (14.0-18.0); Immature Granulocytes Absolute 0.21 #; Lymphocytes % 4.9 % (21.2-54.2); Mean Corpuscular HGB Conc 31.6 GM/DL (32-36); Mean Corpuscular Volume 90.2 FL (87-102); Mean Platelet Volume 10.4 FL (9.6-12.0); Monocytes % 6.6 % (1.7-12.7); Neutrophils % 87.5 % (38.7-73.9); Platelet Count 342 T/CUMM (130-400); Red Blood Count 4.07 MC/CUMM (3.8-5.5); Red Cell Distribution Width 13.2 % (9.3-17.3); White Blood Count 20.9 T/CUMM (4-12)
[2020-01-11 06:04] LABS: Calcium 9.3 MG/DL (8.5-10.1); Osmolality,Calculated 266.7 MOS/KG (273-304); Potassium 5.1 MMOL/L (3.5-5.1); Thyroid Stimulating Hormone 0.951 uIU/ml (0.358-3.74)
[2020-01-11 06:12] LABS: Band Neutrophils 1 % (0-10); Lymphocytes 6 % (20-55); Platelet Estimate Normal; Segmented Neutrophils 89 % (50-85); Total Cells Counted 100
[2020-01-11 07:40] LABS: Albumin 2.3 G/DL (3.4-5.0); Bilirubin,Direct 0.31 MG/DL (0.0-0.20); Bilirubin,Indirect 1.4 MG/DL (0.0-1.0); Bilirubin,Total 1.7 MG/DL (0.2-1.0); Total Protein 7.5 G/DL (6.4-8.3)
[2020-01-11 08:44] LABS: Bacteria,Urine Occasional /HPF (Few); Bilirubin,Urine Negative (Negative); Blood, Urine Negative (Negative); Glucose,Urine (UA) Negative (Negative); Ketones,Urine Negative (Negative); Mucus,Urine Moderate /LPF (Occasional); Nitrite,Urine Negative (Negative); Protein,Urine Negative; RBC,Urine 1 /HPF (0-4); Squamous Epithelial Cell,Urine Occasional /HPF (0-10); Urine Appearance CLEAR (Clear); Urine Color Amber (Yellow); Urine Specific Gravity 1.024 (1.001-1.035); WBC,Urine 1 /HPF (0-6)
[2020-01-11] MEDS ORDERED: DILTIAZEM CD 120 MG CAPSULE PO SCH (09:00)
[2020-01-11] MEDS ORDERED: ASPIRIN EC 325 MG TABLET PO SCH (09:00)
[2020-01-11] MEDS ORDERED: AMIODARONE 200 MG TABLET PO SCH (09:00)
[2020-01-11] MEDS: TAMSULOSIN 0.4 MG CAPSULE PO SCH (10:41)
[2020-01-11] MEDS: FINASTERIDE 5 MG TABLET PO SCH (10:42)
[2020-01-11] MEDS: DOCUSATE SODIUM 100 MG CAPSULE PO SCH (10:42)
[2020-01-11] MEDS: APIXABAN 5 MG TABLET PO SCH (10:42)
[2020-01-11] MEDS: ONDANSETRON 4 MG/2 ML VIAL IV PRN (10:43)
[2020-01-11] MEDS: METOPROLOL TARTRATE 50 MG TABLET PO SCH ×2 (10:43→21:48)
[2020-01-11] MEDS ORDERED: PROMETHAZINE INJ 12.5 MG in SODIUM CHLORIDE 0.9% 50 ML IV ONE (11:27)
[2020-01-11] MEDS: METOCLOPRAMIDE 10 MG/2 ML VIAL IV PRN (16:04)
[2020-01-11] MEDS ORDERED: PROMETHAZINE INJ 12.5 MG in SODIUM CHLORIDE 0.9% 50 ML IV PRN (17:46)
[2020-01-11] MEDS: LEVOFLOXACIN INJ 500 MG in PREMIX 1 EACH IV SCH (18:02)
[2020-01-11] MEDS: AMIODARONE INJ 450 MG in DEXTROSE 5% 241 ML IV SCH (18:03)
[2020-01-11] MEDS: DEXTROSE 5% NACL 0.9% 1,000 ML IV SCH (19:35)
[2020-01-11] MEDS: PANTOPRAZOLE 40 MG VIAL IV SCH (21:46)
[2020-01-11 21:55] LABS: Basophils % 0.1 % (0.0-0.8); Hematocrit 36.3 VOL% (42.0-52.0); Hemoglobin 11.6 GM/DL (14.0-18.0); Immature Granulocytes Absolute 1.01 #; Lymphocytes # 0.5 10*3/uL (1.4-4.0); Lymphocytes % 1.6 % (21.2-54.2); Mean Corpuscular Volume 89.6 FL (87-102); Monocytes % 6.7 % (1.7-12.7); Neutrophils % 88.6 % (38.7-73.9); Platelet Count 304 T/CUMM (130-400); Red Blood Count 4.05 MC/CUMM (3.8-5.5); Red Cell Distribution Width 13.2 % (9.3-17.3); White Blood Count 33.4 T/CUMM (4-12)
[2020-01-11 22:17] LABS: Anisocytosis 1+; Hypochromasia 1+; Lymphocytes 4 % (20-55); Segmented Neutrophils 90 % (50-85); Total Cells Counted 100
[2020-01-11 22:18] LABS: Platelet Estimate Adequate; Polychromasia Few; Reactive Lymphocytes Few
[2020-01-12] MEDS: ALBUTEROL/IPRATROPIUM 3 ML NEB RESP TX SCH ×4 (01:21→19:20)
[2020-01-12] MEDS: AMIODARONE INJ 450 MG in DEXTROSE 5% 241 ML IV SCH (02:03)
[2020-01-12 02:09] LABS: Hematocrit 35.6 VOL% (42.0-52.0); Hemoglobin 11.3 GM/DL (14.0-18.0)
[2020-01-12] MEDS: METOPROLOL TARTRATE 100 MG TABLET PO SCH ×2 (04:49→21:33)
[2020-01-12] MEDS: DEXTROSE 5% NACL 0.9% 1,000 ML IV SCH ×2 (04:49→13:56)
[2020-01-12 05:33] LABS: Basophils % 0.1 % (0.0-0.8); Hemoglobin 10.8 GM/DL (14.0-18.0); Immature Granulocytes % 1.4 %; Immature Granulocytes Absolute 0.38 #; Lymphocytes # 0.7 10*3/uL (1.4-4.0); Lymphocytes % 2.8 % (21.2-54.2); Mean Corpuscular HGB Conc 31.8 GM/DL (32-36); Mean Corpuscular Volume 90.4 FL (87-102); Mean Platelet Volume 10.3 FL (9.6-12.0); Monocytes % 7.6 % (1.7-12.7); Neutrophils % 88.1 % (38.7-73.9); Platelet Count 319 T/CUMM (130-400); Red Blood Count 3.76 MC/CUMM (3.8-5.5); Red Cell Distribution Width 13.2 % (9.3-17.3); White Blood Count 26.3 T/CUMM (4-12)
[2020-01-12 05:50] LABS: Calcium 8.8 MG/DL (8.5-10.1); Potassium 3.9 MMOL/L (3.5-5.1)
[2020-01-12 06:09] LABS: Hypochromasia 1+; Lymphocytes 2 % (20-55); Microcytosis 1+; Ovalocytes Slight; Platelet Estimate Adequate; Segmented Neutrophils 88 % (50-85); Total Cells Counted 100
[2020-01-12 06:21] LABS: Bilirubin,Direct 0.3 MG/DL (0.0-0.20); Bilirubin,Indirect 0.6 MG/DL (0.0-1.0); Bilirubin,Total 0.9 MG/DL (0.2-1.0); Total Protein 6.3 G/DL (6.4-8.3)
[2020-01-12] MEDS: DOCUSATE SODIUM 100 MG CAPSULE PO SCH (08:51)
[2020-01-12] MEDS: FINASTERIDE 5 MG TABLET PO SCH (08:51)
[2020-01-12] MEDS: SACUBITRIL/VALSARTAN 49-51 MG TABLET PO SCH ×2 (08:51→21:33)
[2020-01-12] MEDS: TAMSULOSIN 0.4 MG CAPSULE PO SCH (08:52)
[2020-01-12] MEDS: PANTOPRAZOLE 40 MG VIAL IV SCH (08:52)
[2020-01-12] MEDS ORDERED: ASPIRIN EC 81 MG TABLET PO SCH (09:00)
[2020-01-12] MEDS: LEVOFLOXACIN INJ 500 MG in PREMIX 1 EACH IV SCH (17:33)
[2020-01-12] MEDS ORDERED: PANTOPRAZOLE 40 MG VIAL IV SCH (21:00)
[2020-01-12] MEDS: ZALEPLON 5 MG CAPSULE PO PRN (21:33)
[2020-01-13] MEDS: ALBUTEROL/IPRATROPIUM 3 ML NEB RESP TX SCH ×4 (00:02→19:22)
[2020-01-13] MEDS: METOCLOPRAMIDE 10 MG/2 ML VIAL IV PRN (01:40)
[2020-01-13 05:30] LABS: Basophils % 0.1 % (0.0-0.8); Hematocrit 36.3 VOL% (42.0-52.0); Hemoglobin 11.5 GM/DL (14.0-18.0); Immature Granulocytes % 0.7 %; Lymphocytes % 6.3 % (21.2-54.2); Mean Corpuscular HGB Conc 31.7 GM/DL (32-36); Mean Corpuscular Volume 91.4 FL (87-102); Mean Platelet Volume 10.7 FL (9.6-12.0); Neutrophils % 83.9 % (38.7-73.9); Platelet Count 293 T/CUMM (130-400); Red Blood Count 3.97 MC/CUMM (3.8-5.5); Red Cell Distribution Width 13.5 % (9.3-17.3); White Blood Count 15.4 T/CUMM (4-12)
[2020-01-13 05:57] LABS: Albumin 1.9 G/DL (3.4-5.0); Bilirubin,Total 1.6 MG/DL (0.2-1.0); Calcium 9.2 MG/DL (8.5-10.1); Potassium 3.9 MMOL/L (3.5-5.1); Total Protein 6.9 G/DL (6.4-8.3)
[2020-01-13] MEDS: SACUBITRIL/VALSARTAN 49-51 MG TABLET PO SCH ×2 (11:08→22:22)
[2020-01-13] MEDS: PANTOPRAZOLE 40 MG VIAL IV SCH (11:08)
[2020-01-13] MEDS: TAMSULOSIN 0.4 MG CAPSULE PO SCH (11:08)
[2020-01-13] MEDS: METOPROLOL TARTRATE 100 MG TABLET PO SCH ×2 (11:08→22:23)
[2020-01-13] MEDS: DOCUSATE SODIUM 100 MG CAPSULE PO SCH (11:08)
[2020-01-13] MEDS: FINASTERIDE 5 MG TABLET PO SCH (11:08)
[2020-01-13 14:43] LABS: Hepatitis B Surface Ag Result Negative (Negative); Hepatitis C Virus Ab Quant 0.03 Index; Hepatitis C Virus Ab Result Negative (Negative)
[2020-01-13] MEDS: LEVOFLOXACIN INJ 500 MG in PREMIX 1 EACH IV SCH (18:30)
[2020-01-14] MEDS: ALBUTEROL/IPRATROPIUM 3 ML NEB RESP TX SCH ×4 (00:02→18:47)
[2020-01-14 05:41] LABS: Basophils % 0.1 % (0.0-0.8); Eosinophils % 0.3 % (0.00-10.9); Hematocrit 37.8 VOL% (42.0-52.0); Immature Granulocytes % 0.5 %; Immature Granulocytes Absolute 0.07 #; Lymphocytes # 1.4 10*3/uL (1.4-4.0); Lymphocytes % 10.7 % (21.2-54.2); Mean Corpuscular HGB Conc 31.7 GM/DL (32-36); Mean Corpuscular Volume 89.6 FL (87-102); Mean Platelet Volume 11.2 FL (9.6-12.0); Monocytes % 12.7 % (1.7-12.7); Neutrophils % 75.7 % (38.7-73.9); Platelet Count 241 T/CUMM (130-400); Red Blood Count 4.22 MC/CUMM (3.8-5.5); Red Cell Distribution Width 13.7 % (9.3-17.3)
[2020-01-14 06:02] LABS: Hypochromasia 1+; Microcytosis Slight; Ovalocytes Slight; Platelet Estimate Adequate
[2020-01-14 06:06] LABS: Albumin 1.7 G/DL (3.4-5.0); Bilirubin,Total 1.5 MG/DL (0.2-1.0); Calcium 8.8 MG/DL (8.5-10.1); Osmolality,Calculated 271.2 MOS/KG (273-304); Potassium 4.5 MMOL/L (3.5-5.1); Total Protein 6.7 G/DL (6.4-8.3)
[2020-01-14] MEDS: PANTOPRAZOLE 40 MG VIAL IV SCH (09:27)
[2020-01-14] MEDS: TAMSULOSIN 0.4 MG CAPSULE PO SCH (09:28)
[2020-01-14] MEDS: METOPROLOL TARTRATE 100 MG TABLET PO SCH ×2 (09:28→20:48)
[2020-01-14] MEDS: SACUBITRIL/VALSARTAN 49-51 MG TABLET PO SCH ×2 (09:28→20:47)
[2020-01-14] MEDS: DOCUSATE SODIUM 100 MG CAPSULE PO SCH (09:28)
[2020-01-14] MEDS: FINASTERIDE 5 MG TABLET PO SCH (09:28)
[2020-01-14] MEDS ORDERED: DILTIAZEM CD 120 MG CAPSULE PO ONE (09:29)
[2020-01-14] MEDS: LEVOFLOXACIN 500 MG TABLET PO SCH (18:05)
[2020-01-15] MEDS: ALBUTEROL/IPRATROPIUM 3 ML NEB RESP TX SCH ×4 (01:55→19:03)
[2020-01-15 05:37] LABS: Basophils % 0.1 % (0.0-0.8); Eosinophils % 0.2 % (0.00-10.9); Hematocrit 33.5 VOL% (42.0-52.0); Hemoglobin 10.5 GM/DL (14.0-18.0); Immature Granulocytes % 0.5 %; Immature Granulocytes Absolute 0.07 #; Lymphocytes # 1.1 10*3/uL (1.4-4.0); Lymphocytes % 7.4 % (21.2-54.2); Mean Corpuscular HGB Conc 31.3 GM/DL (32-36); Mean Corpuscular Volume 89.6 FL (87-102); Mean Platelet Volume 10.5 FL (9.6-12.0); Neutrophils % 81.8 % (38.7-73.9); Platelet Count 324 T/CUMM (130-400); Red Blood Count 3.74 MC/CUMM (3.8-5.5); Red Cell Distribution Width 13.8 % (9.3-17.3); White Blood Count 14.5 T/CUMM (4-12)
[2020-01-15 06:06] LABS: Albumin 1.7 G/DL (3.4-5.0); Bilirubin,Total 2.3 MG/DL (0.2-1.0); Calcium 8.8 MG/DL (8.5-10.1); Osmolality,Calculated 279.7 MOS/KG (273-304); Potassium 3.5 MMOL/L (3.5-5.1); Total Protein 6.2 G/DL (6.4-8.3)
[2020-01-15] MEDS ORDERED: DILTIAZEM CD 120 MG CAPSULE PO SCH (09:00)
[2020-01-15] MEDS ORDERED: LEVOFLOXACIN 500 MG TABLET PO SCH (09:00)
[2020-01-15] MEDS: PANTOPRAZOLE 40 MG VIAL IV SCH (09:29)
[2020-01-15] MEDS: METOPROLOL TARTRATE 100 MG TABLET PO SCH ×2 (09:29→23:52)
[2020-01-15] MEDS: FINASTERIDE 5 MG TABLET PO SCH (09:29)
[2020-01-15] MEDS: SACUBITRIL/VALSARTAN 49-51 MG TABLET PO SCH ×2 (09:29→23:53)
[2020-01-15] MEDS: TAMSULOSIN 0.4 MG CAPSULE PO SCH (09:30)
[2020-01-15] MEDS: DOCUSATE SODIUM 100 MG CAPSULE PO SCH (09:30)
[2020-01-15] MEDS: SERTRALINE 25 MG TABLET PO SCH (09:39)
[2020-01-15] MEDS: POLYETHYLENE GLYCOL POWDER 17 GM PACK PO SCH (09:39)
[2020-01-15] MEDS: CLINDAMYCIN 300 MG CAPSULE PO SCH ×2 (15:17→23:53)
[2020-01-15] MEDS: LEVOFLOXACIN 500 MG TABLET PO SCH (17:11)
[2020-01-16] MEDS: ALBUTEROL/IPRATROPIUM 3 ML NEB RESP TX SCH ×4 (01:40→19:53)
[2020-01-16 05:41] LABS: Basophils % 0.1 % (0.0-0.8); Eosinophils % 0.1 % (0.00-10.9); Hematocrit 34.4 VOL% (42.0-52.0); Immature Granulocytes % 0.6 %; Immature Granulocytes Absolute 0.09 #; Lymphocytes # 0.8 10*3/uL (1.4-4.0); Lymphocytes % 5.5 % (21.2-54.2); Mean Corpuscular Volume 88.7 FL (87-102); Mean Platelet Volume 10.4 FL (9.6-12.0); Monocytes % 9.2 % (1.7-12.7); Neutrophils % 84.5 % (38.7-73.9); Platelet Count 326 T/CUMM (130-400); Red Blood Count 3.88 MC/CUMM (3.8-5.5); Red Cell Distribution Width 14.1 % (9.3-17.3); White Blood Count 14.7 T/CUMM (4-12)
[2020-01-16 06:04] LABS: Calcium 8.7 MG/DL (8.5-10.1); Osmolality,Calculated 279.8 MOS/KG (273-304); Potassium 3.5 MMOL/L (3.5-5.1)
[2020-01-16] MEDS ORDERED: SODIUM CHLORIDE 0.9% 500 ML IV ONE (06:56)
[2020-01-16] MEDS: CLINDAMYCIN 300 MG CAPSULE PO SCH ×3 (07:33→22:40)
[2020-01-16] MEDS: SODIUM CHLORIDE 0.9% 1,000 ML IV SCH ×2 (08:00→18:43)
[2020-01-16] MEDS: FINASTERIDE 5 MG TABLET PO SCH (10:12)
[2020-01-16] MEDS: TAMSULOSIN 0.4 MG CAPSULE PO SCH (10:12)
[2020-01-16] MEDS: SERTRALINE 25 MG TABLET PO SCH (10:12)
[2020-01-16] MEDS: DOCUSATE SODIUM 100 MG CAPSULE PO SCH (10:12)
[2020-01-16] MEDS: METOPROLOL TARTRATE 100 MG TABLET PO SCH ×2 (10:12→22:40)
[2020-01-16] MEDS: PANTOPRAZOLE 40 MG VIAL IV SCH (10:13)
[2020-01-16] MEDS: POLYETHYLENE GLYCOL POWDER 17 GM PACK PO SCH (10:13)
[2020-01-16] MEDS ORDERED: MIDAZOLAM 2 MG/2 ML VIAL IV ONE (11:19)
[2020-01-16] MEDS ORDERED: MIDAZOLAM 10 MG/2 ML VIAL ONE (12:01)
[2020-01-16] MEDS ORDERED: oxyCODONE/ACETAMINOPHEN 5-325 MG TABLET PO PRN (15:47)
[2020-01-16] MEDS ORDERED: HYDROmorphone 2 MG/1 ML VIAL IV PRN (15:47)
[2020-01-16] MEDS: LEVOFLOXACIN 500 MG TABLET PO SCH (17:10)
[2020-01-16] MEDS: ZALEPLON 5 MG CAPSULE PO PRN (22:42)
[2020-01-17] MEDS: ALBUTEROL/IPRATROPIUM 3 ML NEB RESP TX SCH ×4 (01:26→19:24)
[2020-01-17] MEDS: SODIUM CHLORIDE 0.9% 1,000 ML IV SCH ×2 (05:51→06:36)
[2020-01-17 06:33] LABS: Calcium 8.4 MG/DL (8.5-10.1); Osmolality,Calculated 277.7 MOS/KG (273-304); Potassium 3.4 MMOL/L (3.5-5.1)
[2020-01-17] MEDS: CLINDAMYCIN 300 MG CAPSULE PO SCH ×3 (06:33→22:58)
[2020-01-17 06:41] LABS: Basophils % 0.1 % (0.0-0.8); Eosinophils % 0.1 % (0.00-10.9); Hematocrit 33.2 VOL% (42.0-52.0); Hemoglobin 10.4 GM/DL (14.0-18.0); Immature Granulocytes % 0.7 %; Immature Granulocytes Absolute 0.08 #; Lymphocytes # 1.2 10*3/uL (1.4-4.0); Lymphocytes % 10.1 % (21.2-54.2); Mean Corpuscular HGB Conc 31.3 GM/DL (32-36); Mean Platelet Volume 10.1 FL (9.6-12.0); Monocytes % 11.8 % (1.7-12.7); Neutrophils % 77.2 % (38.7-73.9); Platelet Count 369 T/CUMM (130-400); Red Blood Count 3.69 MC/CUMM (3.8-5.5); Red Cell Distribution Width 14.4 % (9.3-17.3); White Blood Count 11.7 T/CUMM (4-12)
[2020-01-17] MEDS: SERTRALINE 25 MG TABLET PO SCH (08:32)
[2020-01-17] MEDS: DOCUSATE SODIUM 100 MG CAPSULE PO SCH (08:32)
[2020-01-17] MEDS: METOPROLOL TARTRATE 100 MG TABLET PO SCH ×2 (08:32→22:58)
[2020-01-17] MEDS: FINASTERIDE 5 MG TABLET PO SCH (08:32)
[2020-01-17] MEDS: TAMSULOSIN 0.4 MG CAPSULE PO SCH (08:32)
[2020-01-17] MEDS: POLYETHYLENE GLYCOL POWDER 17 GM PACK PO SCH (08:33)
[2020-01-17] MEDS: PANTOPRAZOLE 40 MG VIAL IV SCH (08:33)
[2020-01-17] MEDS: LEVOFLOXACIN 500 MG TABLET PO SCH (17:05)
[2020-01-18] MEDS: ALBUTEROL/IPRATROPIUM 3 ML NEB RESP TX SCH ×4 (01:52→19:28)
[2020-01-18] MEDS: CLINDAMYCIN 300 MG CAPSULE PO SCH ×3 (06:14→22:37)
[2020-01-18 07:18] LABS: Basophils % 0.1 % (0.0-0.8); Eosinophils % 0.2 % (0.00-10.9); Hematocrit 32.3 VOL% (42.0-52.0); Hemoglobin 10.1 GM/DL (14.0-18.0); Immature Granulocytes % 0.5 %; Immature Granulocytes Absolute 0.06 #; Lymphocytes # 1.2 10*3/uL (1.4-4.0); Lymphocytes % 10.9 % (21.2-54.2); Mean Corpuscular HGB Conc 31.3 GM/DL (32-36); Monocytes % 11.7 % (1.7-12.7); Neutrophils % 76.6 % (38.7-73.9); Platelet Count 331 T/CUMM (130-400); Red Blood Count 3.63 MC/CUMM (3.8-5.5); Red Cell Distribution Width 14.6 % (9.3-17.3); White Blood Count 11.3 T/CUMM (4-12)
[2020-01-18 07:34] LABS: Calcium 8.3 MG/DL (8.5-10.1); Osmolality,Calculated 280.5 MOS/KG (273-304); Potassium 3.2 MMOL/L (3.5-5.1)
[2020-01-18] MEDS ORDERED: POTASSIUM CHLORIDE 20 MEQ TABLET PO ONE (07:50)
[2020-01-18] MEDS ORDERED: POTASSIUM CHLORIDE 20 MEQ TABLET PO PRN (08:25)
[2020-01-18] MEDS: FINASTERIDE 5 MG TABLET PO SCH (09:42)
[2020-01-18] MEDS: TAMSULOSIN 0.4 MG CAPSULE PO SCH (09:42)
[2020-01-18] MEDS: SERTRALINE 25 MG TABLET PO SCH (09:42)
[2020-01-18] MEDS: DOCUSATE SODIUM 100 MG CAPSULE PO SCH (09:42)
[2020-01-18] MEDS: POLYETHYLENE GLYCOL POWDER 17 GM PACK PO SCH (09:43)
[2020-01-18] MEDS: PANTOPRAZOLE 40 MG VIAL IV SCH (10:24)
[2020-01-18] MEDS: METOPROLOL TARTRATE 100 MG TABLET PO SCH ×2 (11:38→22:37)
[2020-01-18] MEDS: LEVOFLOXACIN 500 MG TABLET PO SCH (17:05)
[2020-01-18] MEDS: ONDANSETRON 4 MG/2 ML VIAL IV PRN (18:45)
[2020-01-19] MEDS: ALBUTEROL/IPRATROPIUM 3 ML NEB RESP TX SCH ×3 (01:20→13:43)
[2020-01-19 05:56] LABS: Basophils % 0.1 % (0.0-0.8); Eosinophils # 0.1 10*3/uL (0.0-0.87); Eosinophils % 0.4 % (0.00-10.9); Hematocrit 32.6 VOL% (42.0-52.0); Hemoglobin 10.1 GM/DL (14.0-18.0); Immature Granulocytes % 0.9 %; Immature Granulocytes Absolute 0.12 #; Lymphocytes # 1.2 10*3/uL (1.4-4.0); Mean Corpuscular Volume 90.6 FL (87-102); Mean Platelet Volume 10.1 FL (9.6-12.0); Monocytes % 9.7 % (1.7-12.7); Neutrophils % 79.9 % (38.7-73.9); Platelet Count 373 T/CUMM (130-400); Red Cell Distribution Width 14.7 % (9.3-17.3); White Blood Count 13.6 T/CUMM (4-12)
[2020-01-19 06:21] LABS: Calcium 8.6 MG/DL (8.5-10.1); Osmolality,Calculated 280.5 MOS/KG (273-304); Potassium 3.6 MMOL/L (3.5-5.1)
[2020-01-19] MEDS: CLINDAMYCIN 300 MG CAPSULE PO SCH ×2 (07:01→16:07)
[2020-01-19] MEDS: FINASTERIDE 5 MG TABLET PO SCH (09:14)
[2020-01-19] MEDS: DOCUSATE SODIUM 100 MG CAPSULE PO SCH (09:14)
[2020-01-19] MEDS: METOPROLOL TARTRATE 100 MG TABLET PO SCH (09:14)
[2020-01-19] MEDS: TAMSULOSIN 0.4 MG CAPSULE PO SCH (09:14)
[2020-01-19] MEDS: SERTRALINE 25 MG TABLET PO SCH (09:14)
[2020-01-19] MEDS: PANTOPRAZOLE 40 MG VIAL IV SCH (09:14)
[2020-01-19] MEDS: POLYETHYLENE GLYCOL POWDER 17 GM PACK PO SCH (09:15)
[2020-01-19 12:08] VITALS: BP 99/66
== END 2020-01-19 15:53 | disposition home health service (06) | DRG 309 ==
LOC: EDBD → EDUNIT# → N.ED 15:26 → N.EDINP 17:18 → N.TELES 17:42
PROVIDERS: ADMIT Internal Medicine Cardiovascular Disease; ATTEND Internal Medicine Cardiovascular Disease

== ENCOUNTER 2020-02-27 08:42 | Inpatient (IN) ==
[2020-02-27] MEDS ORDERED: SODIUM CHLORIDE 0.9% 1,000 ML IV STA (09:16)
[2020-02-27 09:44] LABS: Basophils % 0.1 % (0.0-0.8); Eosinophils % 0.4 % (0.00-10.9); Hematocrit 31.2 VOL% (42.0-52.0); Hemoglobin 9.4 GM/DL (14.0-18.0); Immature Granulocytes % 0.4 %; Immature Granulocytes Absolute 0.03 #; Lymphocytes # 0.9 10*3/uL (1.4-4.0); Mean Corpuscular HGB Conc 30.1 GM/DL (32-36); Mean Corpuscular Volume 80.8 FL (87-102); Mean Platelet Volume 9.8 FL (9.6-12.0); Monocytes % 10.4 % (1.7-12.7); Neutrophils % 76.7 % (38.7-73.9); Platelet Count 268 T/CUMM (130-400); Red Blood Count 3.86 MC/CUMM (3.8-5.5); Red Cell Distribution Width 15.9 % (9.3-17.3); White Blood Count 7.7 T/CUMM (4-12)
[2020-02-27 10:00] LABS: Albumin 2.2 G/DL (3.4-5.0); Bilirubin,Total 0.7 MG/DL (0.2-1.0); Calcium 8.3 MG/DL (8.5-10.1); Osmolality,Calculated 269.2 MOS/KG (273-304); Potassium 3.4 MMOL/L (3.5-5.1); Total Protein 7.2 G/DL (6.4-8.3)
[2020-02-27 10:57] LABS: Bacteria,Urine Occasional /HPF (Few); Bilirubin,Urine Negative (Negative); Blood, Urine Negative (Negative); Glucose,Urine (UA) Negative (Negative); Ketones,Urine Negative (Negative); Mucus,Urine Many /LPF (Occasional); Nitrite,Urine Negative (Negative); Protein,Urine Negative; RBC,Urine 5 /HPF (0-4); Uric Acid Crystals,Urine Few /HPF (<1); Urine Appearance Slightly Hazy (Clear); Urine Color Amber (Yellow); Urine Specific Gravity 1.019 (1.001-1.035); WBC,Urine 11 /HPF (0-6)
[2020-02-27] MEDS ORDERED: cefTRIAXone 1,000 MG in SODIUM CHLORIDE 0.9% 100 ML IV STA (12:01)
[2020-02-27] MEDS ORDERED: guaiFENesin/DM ER 600-30 MG TABLET PO PRN (12:26)
[2020-02-27] MEDS ORDERED: GLUCAGON 1 MG VIAL IM PRN (12:26)
[2020-02-27] MEDS ORDERED: hydrALAZINE 20 MG/1 ML VIAL IV PRN (12:26)
[2020-02-27] MEDS ORDERED: DEXTROSE 50% 25 GM/50 ML VIAL IV PRN (12:26)
[2020-02-27 13:17] LABS: Allen Test Positive
[2020-02-27 13:18] LABS: ABG Base Excess 3.3 MMOL/L (-2.5-2.5); ABG HCO3 27.3 MMOL/L (20-26); ABG Oxygen Saturation 95.6 % (95-100); ABG PCO2 40.5 MM HG (35-48); ABG PH 7.442 (7.35-7.45); ABG PO2 77.4 MM HG (80-95); ABG TCO2 24.9 MMOL/L (23-27)
[2020-02-27] MEDS: ENOXAPARIN 40 MG/0.4 ML SYRINGE SUBCUT SCH (13:58)
[2020-02-27] MEDS: LEVOFLOXACIN INJ 750 MG in PREMIX 1 EACH IV SCH (13:58)
[2020-02-27] MEDS: SODIUM CHLORIDE 0.9% 1,000 ML IV SCH (13:58)
[2020-02-27 14:34] LABS: INR 1.3; PT Patient Result 13.5 SECS (9.8-11.9)
[2020-02-27] MEDS: METOPROLOL TARTRATE 100 MG TABLET PO SCH (19:59)
[2020-02-27] MEDS ORDERED: METOPROLOL TARTRATE 50 MG TABLET PO ONE (21:00)
[2020-02-28] MEDS: SODIUM CHLORIDE 0.9% 1,000 ML IV SCH ×4 (04:30→18:47)
[2020-02-28 06:51] LABS: Basophils % 0.4 % (0.0-0.8); Eosinophils # 0.1 10*3/uL (0.0-0.87); Eosinophils % 1.8 % (0.00-10.9); Hematocrit 29.4 VOL% (42.0-52.0); Hemoglobin 8.8 GM/DL (14.0-18.0); Immature Granulocytes % 0.2 %; Immature Granulocytes Absolute 0.01 #; Lymphocytes % 17.2 % (21.2-54.2); Mean Corpuscular HGB Conc 29.9 GM/DL (32-36); Mean Corpuscular Volume 82.6 FL (87-102); Monocytes % 12.5 % (1.7-12.7); Neutrophils % 67.9 % (38.7-73.9); Platelet Count 258 T/CUMM (130-400); Red Blood Count 3.56 MC/CUMM (3.8-5.5); Red Cell Distribution Width 15.5 % (9.3-17.3); White Blood Count 5.5 T/CUMM (4-12)
[2020-02-28 07:17] LABS: Albumin 1.9 G/DL (3.4-5.0); Bilirubin,Total 0.5 MG/DL (0.2-1.0); Calcium 8.4 MG/DL (8.5-10.1); Osmolality,Calculated 271.8 MOS/KG (273-304); Potassium 3.3 MMOL/L (3.5-5.1); Risk Ratio 3.5; Thyroid Stimulating Hormone 2.83 uIU/ml (0.358-3.74); VLDL CHOLESTEROL 12.2 MG/DL
[2020-02-28] MEDS ORDERED: POTASSIUM CHLORIDE 20 MEQ TABLET PO ONE (09:00)
[2020-02-28] MEDS: METOPROLOL TARTRATE 100 MG TABLET PO SCH ×2 (09:16→21:25)
[2020-02-28] MEDS: guaiFENesin/CODEINE 5 ML LIQUID PO PRN ×2 (09:16→21:25)
[2020-02-28] MEDS: PANTOPRAZOLE 40 MG TABLET PO SCH (09:16)
[2020-02-28] MEDS ORDERED: DEXAMETHASONE 4 MG/1 ML VIAL IV SCH (11:30)
[2020-02-28] MEDS: CLOPIDOGREL 75 MG TABLET PO SCH (12:00)
[2020-02-28] MEDS: ASPIRIN EC 81 MG TABLET PO SCH (12:00)
[2020-02-28] MEDS: ZINC GLUCONATE 50 MG TABLET PO SCH (12:00)
[2020-02-28] MEDS: ASCORBIC ACID 500 MG TABLET PO SCH ×2 (12:00→21:25)
[2020-02-28] MEDS: FINASTERIDE 5 MG TABLET PO SCH (12:00)
[2020-02-28] MEDS: ENOXAPARIN 40 MG/0.4 ML SYRINGE SUBCUT SCH (12:00)
[2020-02-28] MEDS: LEVOFLOXACIN INJ 750 MG in PREMIX 1 EACH IV SCH (12:00)
[2020-02-28] MEDS: FAMOTIDINE 20 MG TABLET PO SCH ×2 (12:00→21:25)
[2020-02-29] MEDS: SODIUM CHLORIDE 0.9% 1,000 ML IV SCH ×5 (02:51→21:29)
[2020-02-29 05:23] LABS: Basophils % 0.2 % (0.0-0.8); Hematocrit 29.1 VOL% (42.0-52.0); Hemoglobin 8.7 GM/DL (14.0-18.0); Immature Granulocytes % 0.5 %; Immature Granulocytes Absolute 0.03 #; Lymphocytes # 0.8 10*3/uL (1.4-4.0); Lymphocytes % 12.3 % (21.2-54.2); Mean Corpuscular HGB Conc 29.9 GM/DL (32-36); Mean Corpuscular Volume 81.1 FL (87-102); Mean Platelet Volume 9.9 FL (9.6-12.0); Monocytes % 7.1 % (1.7-12.7); Neutrophils % 79.9 % (38.7-73.9); Platelet Count 274 T/CUMM (130-400); Red Blood Count 3.59 MC/CUMM (3.8-5.5); Red Cell Distribution Width 15.3 % (9.3-17.3); White Blood Count 6.2 T/CUMM (4-12)
[2020-02-29 05:51] LABS: Troponin I < 0.015 NG/ML (0.00-0.045)
[2020-02-29 06:02] LABS: Albumin 1.9 G/DL (3.4-5.0); Bilirubin,Total 0.9 MG/DL (0.2-1.0); Calcium 8.5 MG/DL (8.5-10.1); Osmolality,Calculated 279.4 MOS/KG (273-304); Potassium 3.9 MMOL/L (3.5-5.1); Total Protein 6.9 G/DL (6.4-8.3)
[2020-02-29] MEDS ORDERED: PANTOPRAZOLE 40 MG TABLET PO SCH (09:00)
[2020-02-29] MEDS: CLOPIDOGREL 75 MG TABLET PO SCH (09:27)
[2020-02-29] MEDS: DOCUSATE SODIUM 100 MG CAPSULE PO SCH (09:27)
[2020-02-29] MEDS: DEXAMETHASONE 4 MG/1 ML VIAL IV SCH (09:27)
[2020-02-29] MEDS: FAMOTIDINE 20 MG TABLET PO SCH ×2 (09:27→21:27)
[2020-02-29] MEDS: PANTOPRAZOLE 40 MG TABLET PO SCH (09:27)
[2020-02-29] MEDS: ASPIRIN EC 81 MG TABLET PO SCH (09:27)
[2020-02-29] MEDS: ASCORBIC ACID 500 MG TABLET PO SCH ×2 (09:27→21:27)
[2020-02-29] MEDS: FINASTERIDE 5 MG TABLET PO SCH (09:27)
[2020-02-29] MEDS: ZINC GLUCONATE 50 MG TABLET PO SCH (09:27)
[2020-02-29] MEDS: TAMSULOSIN 0.4 MG CAPSULE PO SCH (09:27)
[2020-02-29] MEDS: ROSUVASTATIN 20 MG TABLET PO SCH (09:27)
[2020-02-29] MEDS: METOPROLOL TARTRATE 100 MG TABLET PO SCH ×2 (09:27→21:28)
[2020-02-29] MEDS: ENOXAPARIN 40 MG/0.4 ML SYRINGE SUBCUT SCH (14:00)
[2020-02-29] MEDS: LEVOFLOXACIN INJ 750 MG in PREMIX 1 EACH IV SCH (14:00)
[2020-02-29] MEDS: ALPRAZolam 0.5 MG TABLET PO PRN (21:26)
[2020-02-29] MEDS: ZALEPLON 5 MG CAPSULE PO PRN (21:27)
[2020-03-01] MEDS: SODIUM CHLORIDE 0.9% 1,000 ML IV SCH ×5 (02:47→23:11)
[2020-03-01 06:41] LABS: Basophils % 0.1 % (0.0-0.8); Hematocrit 28.6 VOL% (42.0-52.0); Hemoglobin 8.6 GM/DL (14.0-18.0); Immature Granulocytes % 0.4 %; Immature Granulocytes Absolute 0.03 #; Lymphocytes # 1.4 10*3/uL (1.4-4.0); Lymphocytes % 17.3 % (21.2-54.2); Mean Corpuscular HGB Conc 30.1 GM/DL (32-36); Mean Corpuscular Volume 81.7 FL (87-102); Mean Platelet Volume 9.9 FL (9.6-12.0); Monocytes % 7.8 % (1.7-12.7); Neutrophils % 74.4 % (38.7-73.9); Platelet Count 267 T/CUMM (130-400); Red Cell Distribution Width 15.5 % (9.3-17.3); White Blood Count 7.9 T/CUMM (4-12)
[2020-03-01 07:03] LABS: Albumin 1.8 G/DL (3.4-5.0); Bilirubin,Total 0.5 MG/DL (0.2-1.0); Calcium 8.4 MG/DL (8.5-10.1); Osmolality,Calculated 287.8 MOS/KG (273-304); Potassium 3.3 MMOL/L (3.5-5.1); Total Protein 6.4 G/DL (6.4-8.3)
[2020-03-01 07:09] LABS: Ferritin 822.3 ng/ml (26-388)
[2020-03-01] MEDS ORDERED: POTASSIUM CHLORIDE 20 MEQ TABLET PO ONE (08:30)
[2020-03-01] MEDS: DEXAMETHASONE 4 MG/1 ML VIAL IV SCH (09:06)
[2020-03-01] MEDS: DOCUSATE SODIUM 100 MG CAPSULE PO SCH (09:06)
[2020-03-01] MEDS: PANTOPRAZOLE 40 MG TABLET PO SCH (09:07)
[2020-03-01] MEDS: CLOPIDOGREL 75 MG TABLET PO SCH (09:07)
[2020-03-01] MEDS: TAMSULOSIN 0.4 MG CAPSULE PO SCH (09:07)
[2020-03-01] MEDS: ROSUVASTATIN 20 MG TABLET PO SCH (09:07)
[2020-03-01] MEDS: ASCORBIC ACID 500 MG TABLET PO SCH ×2 (09:07→21:05)
[2020-03-01] MEDS: FINASTERIDE 5 MG TABLET PO SCH (09:07)
[2020-03-01] MEDS: ZINC GLUCONATE 50 MG TABLET PO SCH (09:07)
[2020-03-01] MEDS: FAMOTIDINE 20 MG TABLET PO SCH ×2 (09:07→23:05)
[2020-03-01] MEDS: ASPIRIN EC 81 MG TABLET PO SCH (09:07)
[2020-03-01] MEDS: METOPROLOL TARTRATE 100 MG TABLET PO SCH ×2 (09:07→21:05)
[2020-03-01] MEDS: ENOXAPARIN 40 MG/0.4 ML SYRINGE SUBCUT SCH (11:35)
[2020-03-01] MEDS: CHOLECALCIFEROL 1,000 UNIT TABLET PO SCH (11:35)
[2020-03-01] MEDS: CETIRIZINE 10 MG TABLET PO SCH (11:35)
[2020-03-01] MEDS: LEVOFLOXACIN INJ 750 MG in PREMIX 1 EACH IV SCH (13:37)
[2020-03-01] MEDS ORDERED: BISACODYL 5 MG TABLET PO PRN (16:31)
[2020-03-01] MEDS ORDERED: LACTULOSE 20 GM/30 ML UDCUP PO PRN (16:31)
[2020-03-01] MEDS: ZALEPLON 5 MG CAPSULE PO PRN (21:05)
[2020-03-01] MEDS: ALPRAZolam 0.5 MG TABLET PO PRN (21:05)
[2020-03-01] MEDS: guaiFENesin/CODEINE 5 ML LIQUID PO PRN (21:10)
[2020-03-02] MEDS: MORPHINE 4 MG/1 ML VIAL IV PRN (04:05)
[2020-03-02] MEDS: SODIUM CHLORIDE 0.9% 1,000 ML IV SCH ×2 (06:25→15:23)
[2020-03-02 07:17] LABS: Alanine Aminotransferase 53 U/L (16-61); Albumin 2.2 G/DL (3.4-5.0); Alkaline Phosphatase 71 U/L (45-117); Aspartate Amino Transferase 37 U/L (0-37); Bilirubin,Total < 0.39 MG/DL (0.2-1.0); Blood Urea Nitrogen 13 MG/DL (7-18); Calcium 8.8 MG/DL (8.5-10.1); Carbon Dioxide 19 MMOL/L (21-32); Estimated Glom Filtration Rate 110 ML/MIN; Ferritin 821.2 ng/ml (26-388); Glucose 121 MG/DL (74-106); Osmolality,Calculated 277.5 MOS/KG (273-304); Sodium 139 MMOL/L (136-145); Total Protein 7.8 G/DL (6.4-8.3)
[2020-03-02 07:47] LABS: Basophils % 0.1 % (0.0-0.8); Eosinophils % 0.1 % (0.00-10.9); Hematocrit 35.9 VOL% (42.0-52.0); Immature Granulocytes % 0.7 %; Lymphocytes # 2.7 10*3/uL (1.4-4.0); Lymphocytes % 17.8 % (21.2-54.2); Mean Corpuscular HGB Conc 29.2 GM/DL (32-36); Mean Corpuscular Volume 83.9 FL (87-102); Mean Platelet Volume 10.8 FL (9.6-12.0); Monocytes % 9.5 % (1.7-12.7); Neutrophils % 71.8 % (38.7-73.9)
[2020-03-02 07:48] LABS: Hemoglobin 10.5 GM/DL (14.0-18.0); Platelet Count 347 T/CUMM (130-400); Red Blood Count 4.28 MC/CUMM (3.8-5.5); White Blood Count 15.3 T/CUMM (4-12)
[2020-03-02] MEDS ORDERED: POTASSIUM CHLORIDE RIDER 10 MEQ in PREMIX 1 EACH IV PRN (08:08)
[2020-03-02] MEDS ORDERED: DILTIAZEM 25 MG/5 ML VIAL IV ONE ×3 (08:22→08:30)
[2020-03-02] MEDS ORDERED: ASPIRIN CHEW 81 MG TABLET PO ONE ×2 (08:29→08:30)
[2020-03-02] MEDS ORDERED: ASPIRIN 325 MG TABLET ONE (08:30)
[2020-03-02] MEDS ORDERED: POTASSIUM CHLORIDE 20 MEQ/15 ML UDCUP PO ONE (08:30)
[2020-03-02] MEDS ORDERED: MORPHINE 4 MG/1 ML VIAL IV ONE (08:30)
[2020-03-02] MEDS ORDERED: POTASSIUM CHLORIDE 20 MEQ/15 ML UDCUP ONE (08:30)
[2020-03-02] MEDS: FINASTERIDE 5 MG TABLET PO SCH (08:50)
[2020-03-02] MEDS: CHOLECALCIFEROL 1,000 UNIT TABLET PO SCH (08:50)
[2020-03-02] MEDS: METOPROLOL TARTRATE 100 MG TABLET PO SCH ×2 (08:50→21:40)
[2020-03-02] MEDS: ROSUVASTATIN 20 MG TABLET PO SCH (08:50)
[2020-03-02] MEDS: CETIRIZINE 10 MG TABLET PO SCH (08:50)
[2020-03-02] MEDS: ASPIRIN EC 81 MG TABLET PO SCH (08:50)
[2020-03-02] MEDS: FAMOTIDINE 20 MG TABLET PO SCH ×2 (08:50→21:39)
[2020-03-02] MEDS: ASCORBIC ACID 500 MG TABLET PO SCH ×2 (08:50→21:40)
[2020-03-02] MEDS: CLOPIDOGREL 75 MG TABLET PO SCH (08:50)
[2020-03-02] MEDS: PANTOPRAZOLE 40 MG TABLET PO SCH (08:50)
[2020-03-02] MEDS: TAMSULOSIN 0.4 MG CAPSULE PO SCH (08:51)
[2020-03-02] MEDS: ZINC GLUCONATE 50 MG TABLET PO SCH (08:51)
[2020-03-02] MEDS: DOCUSATE SODIUM 100 MG CAPSULE PO SCH (08:51)
[2020-03-02] MEDS ORDERED: ASPIRIN 325 MG TABLET PO ONE (09:00)
[2020-03-02] MEDS: CLINDAMYCIN INJ 900 MG in PREMIX 1 EACH IV SCH ×2 (11:13→16:01)
[2020-03-02] MEDS: ENOXAPARIN 40 MG/0.4 ML SYRINGE SUBCUT SCH (12:01)
[2020-03-02] MEDS: LEVOFLOXACIN INJ 750 MG in PREMIX 1 EACH IV SCH (12:02)
[2020-03-02 13:51] LABS: Bacteria,Urine Occasional /HPF (Few); Bilirubin,Urine Negative (Negative); Blood, Urine Large mg/dL (Negative); Glucose,Urine (UA) Negative (Negative); Ketones,Urine Negative (Negative); Mucus,Urine Occasional /LPF (Occasional); Nitrite,Urine Negative (Negative); Protein,Urine Negative; RBC,Urine 225 /HPF (0-4); Squamous Epithelial Cell,Urine Occasional /HPF (0-10); Urine Appearance CLEAR (Clear); Urine Color Yellow (Yellow); Urine Specific Gravity 1.008 (1.001-1.035); Urine Urobilinogen < 2.0 EU/DL (0.2-1.0); WBC,Urine 6 /HPF (0-6)
[2020-03-02] MEDS: ALPRAZolam 0.5 MG TABLET PO PRN (21:40)
[2020-03-03] MEDS: CLINDAMYCIN INJ 900 MG in PREMIX 1 EACH IV SCH ×3 (02:19→17:16)
[2020-03-03 06:05] LABS: Basophils % 0.3 % (0.0-0.8); Eosinophils # 0.1 10*3/uL (0.0-0.87); Hematocrit 30.2 VOL% (42.0-52.0); Hemoglobin 9.1 GM/DL (14.0-18.0); Immature Granulocytes % 0.5 %; Immature Granulocytes Absolute 0.04 #; Lymphocytes # 2.2 10*3/uL (1.4-4.0); Lymphocytes % 28.1 % (21.2-54.2); Mean Corpuscular HGB Conc 30.1 GM/DL (32-36); Mean Corpuscular Volume 80.7 FL (87-102); Mean Platelet Volume 9.8 FL (9.6-12.0); Monocytes % 9.4 % (1.7-12.7); Neutrophils % 60.7 % (38.7-73.9); Platelet Count 291 T/CUMM (130-400); Red Blood Count 3.74 MC/CUMM (3.8-5.5); White Blood Count 7.9 T/CUMM (4-12)
[2020-03-03 06:41] LABS: Albumin 1.8 G/DL (3.4-5.0); Bilirubin,Total 0.8 MG/DL (0.2-1.0); Calcium 8.5 MG/DL (8.5-10.1); Osmolality,Calculated 278.3 MOS/KG (273-304); Total Protein 6.4 G/DL (6.4-8.3)
[2020-03-03] MEDS ORDERED: POTASSIUM CHLORIDE 20 MEQ TABLET PO ONE ×2 (07:42→13:00)
[2020-03-03] MEDS: PANTOPRAZOLE 40 MG TABLET PO SCH (09:00)
[2020-03-03] MEDS: ASCORBIC ACID 500 MG TABLET PO SCH ×2 (09:01→20:50)
[2020-03-03] MEDS: MAGNESIUM OXIDE 400 MG TABLET PO SCH ×2 (09:01→20:50)
[2020-03-03] MEDS: FAMOTIDINE 20 MG TABLET PO SCH ×2 (09:01→20:50)
[2020-03-03] MEDS: DOCUSATE SODIUM 100 MG CAPSULE PO SCH (09:01)
[2020-03-03] MEDS: ROSUVASTATIN 20 MG TABLET PO SCH (09:01)
[2020-03-03] MEDS: TAMSULOSIN 0.4 MG CAPSULE PO SCH (09:01)
[2020-03-03] MEDS: METOPROLOL TARTRATE 100 MG TABLET PO SCH ×2 (09:01→20:50)
[2020-03-03] MEDS: CETIRIZINE 10 MG TABLET PO SCH (09:01)
[2020-03-03] MEDS: FINASTERIDE 5 MG TABLET PO SCH (09:01)
[2020-03-03] MEDS: ASPIRIN EC 81 MG TABLET PO SCH (09:01)
[2020-03-03] MEDS: ZINC GLUCONATE 50 MG TABLET PO SCH (09:01)
[2020-03-03] MEDS: ENOXAPARIN 40 MG/0.4 ML SYRINGE SUBCUT SCH (09:06)
[2020-03-03] MEDS: CHOLECALCIFEROL 1,000 UNIT TABLET PO SCH (09:51)
[2020-03-03] MEDS ORDERED: DIAZEPAM 5 MG TABLET PO ONE (11:17)
[2020-03-03] MEDS: LEVOFLOXACIN INJ 750 MG in PREMIX 1 EACH IV SCH (12:20)
[2020-03-03] MEDS: MORPHINE 4 MG/1 ML VIAL IV PRN ×2 (16:22→20:50)
[2020-03-03] MEDS: ALPRAZolam 0.5 MG TABLET PO PRN (20:51)
[2020-03-04] MEDS: CLINDAMYCIN INJ 900 MG in PREMIX 1 EACH IV SCH ×3 (00:07→16:44)
[2020-03-04 04:45] LABS: Basophils % 0.2 % (0.0-0.8); Eosinophils # 0.1 10*3/uL (0.0-0.87); Eosinophils % 0.5 % (0.00-10.9); Hematocrit 31.9 VOL% (42.0-52.0); Hemoglobin 9.8 GM/DL (14.0-18.0); Immature Granulocytes % 0.4 %; Immature Granulocytes Absolute 0.04 #; Lymphocytes # 1.7 10*3/uL (1.4-4.0); Lymphocytes % 16.8 % (21.2-54.2); Mean Corpuscular HGB Conc 30.7 GM/DL (32-36); Mean Corpuscular Volume 79.4 FL (87-102); Mean Platelet Volume 9.8 FL (9.6-12.0); Monocytes % 8.6 % (1.7-12.7); Neutrophils % 73.5 % (38.7-73.9); Platelet Count 303 T/CUMM (130-400); Red Blood Count 4.02 MC/CUMM (3.8-5.5); Red Cell Distribution Width 17.2 % (9.3-17.3); White Blood Count 9.9 T/CUMM (4-12)
[2020-03-04 05:28] LABS: Calcium 8.5 MG/DL (8.5-10.1); Osmolality,Calculated 270.8 MOS/KG (273-304); Potassium 3.6 MMOL/L (3.5-5.1); Total Protein 6.7 G/DL (6.4-8.3)
[2020-03-04] MEDS: MORPHINE 4 MG/1 ML VIAL IV PRN ×2 (08:57→21:52)
[2020-03-04] MEDS: ENOXAPARIN 40 MG/0.4 ML SYRINGE SUBCUT SCH (08:58)
[2020-03-04] MEDS: ASCORBIC ACID 500 MG TABLET PO SCH ×2 (08:59→20:19)
[2020-03-04] MEDS: TAMSULOSIN 0.4 MG CAPSULE PO SCH (08:59)
[2020-03-04] MEDS: CETIRIZINE 10 MG TABLET PO SCH (08:59)
[2020-03-04] MEDS: METOPROLOL TARTRATE 100 MG TABLET PO SCH ×2 (08:59→20:19)
[2020-03-04] MEDS: PANTOPRAZOLE 40 MG TABLET PO SCH (08:59)
[2020-03-04] MEDS: ROSUVASTATIN 20 MG TABLET PO SCH (08:59)
[2020-03-04] MEDS: MAGNESIUM OXIDE 400 MG TABLET PO SCH ×2 (08:59→20:19)
[2020-03-04] MEDS: ASPIRIN EC 81 MG TABLET PO SCH (09:00)
[2020-03-04] MEDS: DOCUSATE SODIUM 100 MG CAPSULE PO SCH (09:00)
[2020-03-04] MEDS: CHOLECALCIFEROL 1,000 UNIT TABLET PO SCH (09:00)
[2020-03-04] MEDS: FINASTERIDE 5 MG TABLET PO SCH (09:00)
[2020-03-04] MEDS: FAMOTIDINE 20 MG TABLET PO SCH ×2 (09:00→20:19)
[2020-03-04] MEDS: ZINC GLUCONATE 50 MG TABLET PO SCH (09:43)
[2020-03-04] MEDS: LEVOFLOXACIN INJ 750 MG in PREMIX 1 EACH IV SCH (12:26)
[2020-03-04] MEDS: ALPRAZolam 0.5 MG TABLET PO PRN (20:21)
[2020-03-05] MEDS: CLINDAMYCIN INJ 900 MG in PREMIX 1 EACH IV SCH ×3 (00:30→16:22)
[2020-03-05] MEDS: MORPHINE 4 MG/1 ML VIAL IV PRN ×2 (04:17→10:12)
[2020-03-05 05:52] LABS: Basophils % 0.2 % (0.0-0.8); Eosinophils # 0.2 10*3/uL (0.0-0.87); Eosinophils % 1.8 % (0.00-10.9); Hematocrit 32.1 VOL% (42.0-52.0); Hemoglobin 9.9 GM/DL (14.0-18.0); Immature Granulocytes % 0.4 %; Immature Granulocytes Absolute 0.03 #; Lymphocytes # 2.1 10*3/uL (1.4-4.0); Lymphocytes % 25.3 % (21.2-54.2); Mean Corpuscular HGB Conc 30.8 GM/DL (32-36); Mean Corpuscular Volume 79.5 FL (87-102); Mean Platelet Volume 9.7 FL (9.6-12.0); Monocytes % 10.9 % (1.7-12.7); Neutrophils % 61.4 % (38.7-73.9); Platelet Count 294 T/CUMM (130-400); Red Blood Count 4.04 MC/CUMM (3.8-5.5); Red Cell Distribution Width 17.5 % (9.3-17.3); White Blood Count 8.5 T/CUMM (4-12)
[2020-03-05 06:52] LABS: Albumin 1.9 G/DL (3.4-5.0); Bilirubin,Total 1.2 MG/DL (0.2-1.0); Calcium 8.4 MG/DL (8.5-10.1); Osmolality,Calculated 272.8 MOS/KG (273-304); Potassium 3.6 MMOL/L (3.5-5.1); Total Protein 6.5 G/DL (6.4-8.3)
[2020-03-05 07:13] LABS: Calcium 8.4 MG/DL (8.5-10.1); Osmolality,Calculated 274.7 MOS/KG (273-304); Potassium 3.5 MMOL/L (3.5-5.1)
[2020-03-05] MEDS: ZINC GLUCONATE 50 MG TABLET PO SCH (09:26)
[2020-03-05] MEDS: FINASTERIDE 5 MG TABLET PO SCH (09:26)
[2020-03-05] MEDS: ASPIRIN EC 81 MG TABLET PO SCH (09:26)
[2020-03-05] MEDS: ENOXAPARIN 40 MG/0.4 ML SYRINGE SUBCUT SCH (09:26)
[2020-03-05] MEDS: ROSUVASTATIN 20 MG TABLET PO SCH (09:26)
[2020-03-05] MEDS: DOCUSATE SODIUM 100 MG CAPSULE PO SCH (09:27)
[2020-03-05] MEDS: ASCORBIC ACID 500 MG TABLET PO SCH ×2 (09:27→21:16)
[2020-03-05] MEDS: PANTOPRAZOLE 40 MG TABLET PO SCH (09:27)
[2020-03-05] MEDS: MAGNESIUM OXIDE 400 MG TABLET PO SCH ×2 (09:27→21:17)
[2020-03-05] MEDS: TAMSULOSIN 0.4 MG CAPSULE PO SCH (09:27)
[2020-03-05] MEDS: CHOLECALCIFEROL 1,000 UNIT TABLET PO SCH (09:27)
[2020-03-05] MEDS: METOPROLOL TARTRATE 100 MG TABLET PO SCH ×2 (09:27→21:17)
[2020-03-05] MEDS: CETIRIZINE 10 MG TABLET PO SCH (09:28)
[2020-03-05] MEDS: FAMOTIDINE 20 MG TABLET PO SCH ×2 (09:28→21:16)
[2020-03-05] MEDS: LEVOFLOXACIN INJ 750 MG in PREMIX 1 EACH IV SCH (13:02)
[2020-03-05] MEDS: ALPRAZolam 0.5 MG TABLET PO PRN (21:15)
[2020-03-06] MEDS: CLINDAMYCIN INJ 900 MG in PREMIX 1 EACH IV SCH ×3 (02:21→16:30)
[2020-03-06 06:13] LABS: Basophils % 0.4 % (0.0-0.8); Eosinophils # 0.3 10*3/uL (0.0-0.87); Eosinophils % 3.7 % (0.00-10.9); Hematocrit 32.1 VOL% (42.0-52.0); Hemoglobin 9.8 GM/DL (14.0-18.0); Immature Granulocytes % 0.3 %; Immature Granulocytes Absolute 0.02 #; Lymphocytes # 2.2 10*3/uL (1.4-4.0); Lymphocytes % 33.1 % (21.2-54.2); Mean Corpuscular HGB Conc 30.5 GM/DL (32-36); Mean Platelet Volume 9.6 FL (9.6-12.0); Monocytes % 14.2 % (1.7-12.7); Neutrophils % 48.3 % (38.7-73.9); Platelet Count 296 T/CUMM (130-400); Red Blood Count 4.01 MC/CUMM (3.8-5.5); Red Cell Distribution Width 17.6 % (9.3-17.3); White Blood Count 6.7 T/CUMM (4-12)
[2020-03-06 06:32] LABS: Albumin 1.8 G/DL (3.4-5.0); Bilirubin,Total 0.4 MG/DL (0.2-1.0); Calcium 8.3 MG/DL (8.5-10.1); Osmolality,Calculated 275.8 MOS/KG (273-304); Potassium 3.8 MMOL/L (3.5-5.1); Total Protein 6.5 G/DL (6.4-8.3)
[2020-03-06 07:31] LABS: Atypical Lymphocytes Few; Eosinophils 6 % (0-10); Hypochromasia 2+; Lymphocytes 24 % (20-55); Microcytosis 1+; Ovalocytes Few; Segmented Neutrophils 55 % (50-85); Total Cells Counted 100
[2020-03-06 07:32] LABS: Platelet Estimate Normal
[2020-03-06] MEDS: MAGNESIUM OXIDE 400 MG TABLET PO SCH ×2 (09:15→21:00)
[2020-03-06] MEDS: ENOXAPARIN 40 MG/0.4 ML SYRINGE SUBCUT SCH (09:15)
[2020-03-06] MEDS: TAMSULOSIN 0.4 MG CAPSULE PO SCH (09:15)
[2020-03-06] MEDS: FAMOTIDINE 20 MG TABLET PO SCH ×2 (09:15→21:00)
[2020-03-06] MEDS: ASCORBIC ACID 500 MG TABLET PO SCH ×2 (09:15→21:00)
[2020-03-06] MEDS: PANTOPRAZOLE 40 MG TABLET PO SCH (09:15)
[2020-03-06] MEDS: DOCUSATE SODIUM 100 MG CAPSULE PO SCH (09:16)
[2020-03-06] MEDS: FINASTERIDE 5 MG TABLET PO SCH (09:16)
[2020-03-06] MEDS: CHOLECALCIFEROL 1,000 UNIT TABLET PO SCH (09:16)
[2020-03-06] MEDS: METOPROLOL TARTRATE 100 MG TABLET PO SCH ×2 (09:16→21:00)
[2020-03-06] MEDS: ASPIRIN EC 81 MG TABLET PO SCH (09:16)
[2020-03-06] MEDS: ROSUVASTATIN 20 MG TABLET PO SCH (09:16)
[2020-03-06] MEDS: ZINC GLUCONATE 50 MG TABLET PO SCH (09:34)
[2020-03-06] MEDS: CETIRIZINE 10 MG TABLET PO SCH (09:34)
[2020-03-06] MEDS: ALPRAZolam 0.5 MG TABLET PO PRN (21:00)
[2020-03-07] MEDS: CLINDAMYCIN INJ 900 MG in PREMIX 1 EACH IV SCH ×3 (01:17→17:20)
[2020-03-07 06:00] LABS: Basophils % 0.4 % (0.0-0.8); Eosinophils # 0.2 10*3/uL (0.0-0.87); Eosinophils % 3.6 % (0.00-10.9); Hematocrit 32.4 VOL% (42.0-52.0); Hemoglobin 9.9 GM/DL (14.0-18.0); Immature Granulocytes % 0.2 %; Immature Granulocytes Absolute 0.01 #; Lymphocytes # 1.9 10*3/uL (1.4-4.0); Mean Corpuscular HGB Conc 30.6 GM/DL (32-36); Mean Corpuscular Volume 80.2 FL (87-102); Mean Platelet Volume 9.6 FL (9.6-12.0); Monocytes % 12.4 % (1.7-12.7); Neutrophils % 47.4 % (38.7-73.9); Platelet Count 282 T/CUMM (130-400); Red Blood Count 4.04 MC/CUMM (3.8-5.5); Red Cell Distribution Width 17.8 % (9.3-17.3); White Blood Count 5.3 T/CUMM (4-12)
[2020-03-07 06:23] LABS: Calcium 8.2 MG/DL (8.5-10.1); Osmolality,Calculated 273.8 MOS/KG (273-304); Potassium 3.7 MMOL/L (3.5-5.1)
[2020-03-07 06:48] LABS: Anisocytosis 1+; Hypochromasia 1+; Microcytosis 1+; Ovalocytes Few
[2020-03-07 06:49] LABS: Platelet Estimate Normal
[2020-03-07] MEDS: ENOXAPARIN 40 MG/0.4 ML SYRINGE SUBCUT SCH (09:32)
[2020-03-07] MEDS: ROSUVASTATIN 20 MG TABLET PO SCH (09:32)
[2020-03-07] MEDS: ZINC GLUCONATE 50 MG TABLET PO SCH (09:33)
[2020-03-07] MEDS: TAMSULOSIN 0.4 MG CAPSULE PO SCH (09:33)
[2020-03-07] MEDS: CHOLECALCIFEROL 1,000 UNIT TABLET PO SCH (09:33)
[2020-03-07] MEDS: PANTOPRAZOLE 40 MG TABLET PO SCH (09:33)
[2020-03-07] MEDS: DOCUSATE SODIUM 100 MG CAPSULE PO SCH (09:33)
[2020-03-07] MEDS: MAGNESIUM OXIDE 400 MG TABLET PO SCH ×2 (09:33→20:39)
[2020-03-07] MEDS: CETIRIZINE 10 MG TABLET PO SCH (09:34)
[2020-03-07] MEDS: ASPIRIN EC 81 MG TABLET PO SCH (09:34)
[2020-03-07] MEDS: ASCORBIC ACID 500 MG TABLET PO SCH ×2 (09:34→20:39)
[2020-03-07] MEDS: FAMOTIDINE 20 MG TABLET PO SCH ×2 (09:34→20:39)
[2020-03-07] MEDS: FINASTERIDE 5 MG TABLET PO SCH (09:34)
[2020-03-07] MEDS: METOPROLOL TARTRATE 100 MG TABLET PO SCH ×3 (09:35→20:39)
[2020-03-07] MEDS: ALPRAZolam 0.5 MG TABLET PO PRN (20:39)
[2020-03-08] MEDS: CLINDAMYCIN INJ 900 MG in PREMIX 1 EACH IV SCH ×4 (01:10→16:23)
[2020-03-08] MEDS: PANTOPRAZOLE 40 MG TABLET PO SCH (09:19)
[2020-03-08] MEDS: CHOLECALCIFEROL 1,000 UNIT TABLET PO SCH (09:19)
[2020-03-08] MEDS: MAGNESIUM OXIDE 400 MG TABLET PO SCH ×2 (09:19→20:23)
[2020-03-08] MEDS: TAMSULOSIN 0.4 MG CAPSULE PO SCH (09:19)
[2020-03-08] MEDS: FAMOTIDINE 20 MG TABLET PO SCH ×2 (09:19→20:23)
[2020-03-08] MEDS: ASCORBIC ACID 500 MG TABLET PO SCH ×2 (09:19→20:23)
[2020-03-08] MEDS: CETIRIZINE 10 MG TABLET PO SCH (09:20)
[2020-03-08] MEDS: DOCUSATE SODIUM 100 MG CAPSULE PO SCH (09:20)
[2020-03-08] MEDS: FINASTERIDE 5 MG TABLET PO SCH (09:20)
[2020-03-08] MEDS: ZINC GLUCONATE 50 MG TABLET PO SCH (09:20)
[2020-03-08] MEDS: ASPIRIN EC 81 MG TABLET PO SCH (09:22)
[2020-03-08] MEDS: METOPROLOL TARTRATE 100 MG TABLET PO SCH ×2 (09:23→20:23)
[2020-03-08] MEDS: ROSUVASTATIN 20 MG TABLET PO SCH (09:23)
[2020-03-08] MEDS ORDERED: TALC INTRAPLEURAL POWDER 3 GM VIAL INTRAPLEUR ONE (09:43)
[2020-03-08] MEDS ORDERED: TISSUE ADHESIVE 1 EACH APPLICATOR TOP ONE (09:50)
[2020-03-08] MEDS ORDERED: propofoL 200 MG/20 ML VIAL IV ONE (10:00)
[2020-03-08] MEDS ORDERED: ROCURONIUM 50 MG/5 ML VIAL IV ONE (10:00)
[2020-03-08] MEDS ORDERED: LIDOCAINE 2% 5 ML VIAL ONE (10:00)
[2020-03-08] MEDS ORDERED: ePHEDrine 50 MG/ML VIAL ONE (10:01)
[2020-03-08] MEDS ORDERED: MIDAZOLAM 2 MG/2 ML VIAL ONE (10:01)
[2020-03-08] MEDS ORDERED: fentaNYL 100 MCG/2 ML VIAL ONE (10:01)
[2020-03-08] MEDS ORDERED: PHENYLEPHRINE 10 MG/1 ML VIAL IV ONE (11:09)
[2020-03-08] MEDS ORDERED: PHENYLEPHRINE 1 MG/10 ML SYRINGE IV ONE (11:44)
[2020-03-08] MEDS ORDERED: SODIUM CHLORIDE 0.9% 1,000 ML IV ONE (11:45)
[2020-03-08] MEDS ORDERED: SODIUM CHLORIDE 0.9% 100 ML IV ONE (11:45)
[2020-03-08] MEDS ORDERED: SEVOFLURANE 1 UNIT/15 MINUTE INH ONE (11:45)
[2020-03-08] MEDS ORDERED: KETOROLAC 30 MG/1 ML VIAL ONE (11:57)
[2020-03-08] MEDS ORDERED: NEOSTIGMINE 10 MG/10 ML VIAL ONE (12:17)
[2020-03-08] MEDS ORDERED: GLYCOPYRROLATE 0.4 MG/2 ML VIAL ONE (12:17)
[2020-03-08] MEDS ORDERED: oxyCODONE/ACETAMINOPHEN 5-325 MG TABLET PO PRN (12:27)
[2020-03-08] MEDS: HYDROmorphone 2 MG/1 ML VIAL IV PRN ×2 (14:00→20:26)
[2020-03-08] MEDS: KETOROLAC 10 MG TABLET PO SCH ×2 (17:30→18:13)
[2020-03-08] MEDS: ALPRAZolam 0.5 MG TABLET PO PRN (20:22)
[2020-03-09] MEDS: KETOROLAC 10 MG TABLET PO SCH ×5 (00:35→23:49)
[2020-03-09] MEDS: CLINDAMYCIN INJ 900 MG in PREMIX 1 EACH IV SCH ×3 (00:36→16:17)
[2020-03-09 06:58] LABS: Basophils % 0.1 % (0.0-0.8); Eosinophils % 0.4 % (0.00-10.9); Hematocrit 29.9 VOL% (42.0-52.0); Hemoglobin 8.9 GM/DL (14.0-18.0); Immature Granulocytes % 0.4 %; Immature Granulocytes Absolute 0.04 #; Lymphocytes # 1.4 10*3/uL (1.4-4.0); Mean Corpuscular HGB Conc 29.8 GM/DL (32-36); Mean Platelet Volume 9.6 FL (9.6-12.0); Monocytes % 12.7 % (1.7-12.7); Neutrophils % 71.4 % (38.7-73.9); Platelet Count 264 T/CUMM (130-400); Red Blood Count 3.69 MC/CUMM (3.8-5.5); Red Cell Distribution Width 18.2 % (9.3-17.3); White Blood Count 9.3 T/CUMM (4-12)
[2020-03-09 07:12] LABS: Calcium 8.4 MG/DL (8.5-10.1); Osmolality,Calculated 271.1 MOS/KG (273-304); Potassium 3.9 MMOL/L (3.5-5.1)
[2020-03-09] MEDS: MAGNESIUM OXIDE 400 MG TABLET PO SCH ×2 (09:52→22:58)
[2020-03-09] MEDS: CHOLECALCIFEROL 1,000 UNIT TABLET PO SCH (09:52)
[2020-03-09] MEDS: CETIRIZINE 10 MG TABLET PO SCH (09:52)
[2020-03-09] MEDS: ROSUVASTATIN 20 MG TABLET PO SCH (09:52)
[2020-03-09] MEDS: FAMOTIDINE 20 MG TABLET PO SCH ×2 (09:52→22:58)
[2020-03-09] MEDS: ASCORBIC ACID 500 MG TABLET PO SCH ×2 (09:52→22:58)
[2020-03-09] MEDS: ZINC GLUCONATE 50 MG TABLET PO SCH (09:52)
[2020-03-09] MEDS: ASPIRIN EC 81 MG TABLET PO SCH (09:52)
[2020-03-09] MEDS: DOCUSATE SODIUM 100 MG CAPSULE PO SCH (09:52)
[2020-03-09] MEDS: METOPROLOL TARTRATE 100 MG TABLET PO SCH ×2 (09:52→22:58)
[2020-03-09] MEDS: FINASTERIDE 5 MG TABLET PO SCH (09:53)
[2020-03-09] MEDS: PANTOPRAZOLE 40 MG TABLET PO SCH (09:53)
[2020-03-09] MEDS: TAMSULOSIN 0.4 MG CAPSULE PO SCH (09:53)
[2020-03-09] MEDS: ENOXAPARIN 40 MG/0.4 ML SYRINGE SUBCUT SCH (11:03)
[2020-03-10 05:37] LABS: Basophils % 0.3 % (0.0-0.8); Eosinophils # 0.1 10*3/uL (0.0-0.87); Eosinophils % 0.5 % (0.00-10.9); Hematocrit 27.3 VOL% (42.0-52.0); Hemoglobin 8.3 GM/DL (14.0-18.0); Immature Granulocytes % 0.5 %; Immature Granulocytes Absolute 0.05 #; Lymphocytes % 9.4 % (21.2-54.2); Mean Corpuscular HGB Conc 30.4 GM/DL (32-36); Mean Corpuscular Volume 80.3 FL (87-102); Mean Platelet Volume 10.6 FL (9.6-12.0); Monocytes % 11.8 % (1.7-12.7); Neutrophils % 77.5 % (38.7-73.9); Platelet Count 213 T/CUMM (130-400); Red Cell Distribution Width 18.4 % (9.3-17.3); White Blood Count 10.3 T/CUMM (4-12)
[2020-03-10 06:07] LABS: Calcium 8.3 MG/DL (8.5-10.1); Osmolality,Calculated 272.1 MOS/KG (273-304); Potassium 3.5 MMOL/L (3.5-5.1)
[2020-03-10] MEDS: KETOROLAC 10 MG TABLET PO SCH ×4 (06:25→23:56)
[2020-03-10] MEDS: ONDANSETRON 4 MG/2 ML VIAL IV PRN ×3 (06:42→17:27)
[2020-03-10] MEDS: CHOLECALCIFEROL 1,000 UNIT TABLET PO SCH (09:08)
[2020-03-10] MEDS: ASCORBIC ACID 500 MG TABLET PO SCH ×2 (09:09→21:15)
[2020-03-10] MEDS: METOPROLOL TARTRATE 100 MG TABLET PO SCH ×2 (09:09→21:15)
[2020-03-10] MEDS: ZINC GLUCONATE 50 MG TABLET PO SCH (09:12)
[2020-03-10] MEDS: CETIRIZINE 10 MG TABLET PO SCH (09:12)
[2020-03-10] MEDS: PANTOPRAZOLE 40 MG TABLET PO SCH (09:12)
[2020-03-10] MEDS: ASPIRIN EC 81 MG TABLET PO SCH (09:12)
[2020-03-10] MEDS: TAMSULOSIN 0.4 MG CAPSULE PO SCH (09:12)
[2020-03-10] MEDS: FAMOTIDINE 20 MG TABLET PO SCH ×2 (09:12→21:15)
[2020-03-10] MEDS: ROSUVASTATIN 20 MG TABLET PO SCH (09:12)
[2020-03-10] MEDS: FINASTERIDE 5 MG TABLET PO SCH (09:12)
[2020-03-10] MEDS: ENOXAPARIN 40 MG/0.4 ML SYRINGE SUBCUT SCH (09:13)
[2020-03-10] MEDS: MAGNESIUM OXIDE 400 MG TABLET PO SCH ×2 (09:13→21:15)
[2020-03-10] MEDS: DOCUSATE SODIUM 100 MG CAPSULE PO SCH (09:16)
[2020-03-10] MEDS: HYDROmorphone 2 MG/1 ML VIAL IV PRN (09:49)
[2020-03-10] MEDS ORDERED: PROMETHAZINE INJ 12.5 MG in SODIUM CHLORIDE 0.9% 50 ML IV ONE (17:56)
[2020-03-10] MEDS: ALPRAZolam 0.5 MG TABLET PO PRN (21:14)
[2020-03-11 06:07] LABS: Hematocrit 27.8 VOL% (42.0-52.0); Hemoglobin 8.3 GM/DL (14.0-18.0)
[2020-03-11] MEDS: KETOROLAC 10 MG TABLET PO SCH (06:07)
[2020-03-11] MEDS: ASPIRIN EC 81 MG TABLET PO SCH (08:48)
[2020-03-11] MEDS: DOCUSATE SODIUM 100 MG CAPSULE PO SCH (08:49)
[2020-03-11] MEDS: ROSUVASTATIN 20 MG TABLET PO SCH (08:49)
[2020-03-11] MEDS: ASCORBIC ACID 500 MG TABLET PO SCH (08:49)
[2020-03-11] MEDS: TAMSULOSIN 0.4 MG CAPSULE PO SCH (08:49)
[2020-03-11] MEDS: CHOLECALCIFEROL 1,000 UNIT TABLET PO SCH (08:49)
[2020-03-11] MEDS: MAGNESIUM OXIDE 400 MG TABLET PO SCH (08:49)
[2020-03-11] MEDS: METOPROLOL TARTRATE 100 MG TABLET PO SCH (08:50)
[2020-03-11] MEDS: FAMOTIDINE 20 MG TABLET PO SCH (08:50)
[2020-03-11] MEDS: PANTOPRAZOLE 40 MG TABLET PO SCH (08:51)
[2020-03-11] MEDS: ZINC GLUCONATE 50 MG TABLET PO SCH (08:51)
[2020-03-11] MEDS: FINASTERIDE 5 MG TABLET PO SCH (08:51)
[2020-03-11] MEDS: ENOXAPARIN 40 MG/0.4 ML SYRINGE SUBCUT SCH (08:51)
[2020-03-11] MEDS: CETIRIZINE 10 MG TABLET PO SCH (08:54)
[2020-03-11] MEDS ORDERED: LOSARTAN 25 MG TABLET PO SCH (09:00)
[2020-03-11 09:09] VITALS: BP 95/56
== END 2020-03-11 12:45 | disposition home or self-care (01) | DRG 163 ==
LOC: EDBD → EDUNIT# → N.ED 08:42 → N.EDINP 12:26 → SUATTDRO 12:26 → N.EDINP 14:22 → N.2E 15:45 → N.TELEN 03-03 15:34
PROVIDERS: ADMIT Family Medicine; ATTEND Internal Medicine